=== PATIENT | female | born 1965 | race Caucasian/White ===

== ENCOUNTER 2019-11-30 22:09 | Emergency (ER) | payer OTHER, SELFPAY ==
[2019-11-30 22:10] VITALS: BP 139/74; PULSE 82; RESP 12; TEMP 36.1; O2SAT 100
[2019-11-30] MEDS: LIDO 1%/EPINEPHRINE 1:100,000 20 ML VIAL (22:49)
--- NOTE | 2019-11-30 23:41 | ED.UPPEXIN ---
HPI - Extremity Injury (Upper) General Chief Complaint: Extremity Injury, Upper Stated Complaint: finger lac Time Seen by Provider: 11/30/19 22:21 History of Present Illness HPI narrative: Patient is a 54-year-old female who presents the ER with a laceration to the left thumb. She was cutting watermelon when the knife slipped and struck her hand. No numbness or tingling. No loss range of motion. Tetanus up-to-date. Related Data Home Medications Medication Instructions Recorded Confirmed melatonin 3 mg PO HS PRN 11/30/19 ropinirole mg 11/30/19 Allergies Allergy/AdvReac Type Severity Reaction Status Date / Time sulfamethoxazole AdvReac Unknown Joint Pain Verified 11/30/19 22:26 trimethoprim AdvReac Unknown Joint Pain Verified 11/30/19 22:26 Review of Systems Constitutional: Constitutional: Denies chills and Denies fever(s) Integumentary/Breasts: Skin/Breast: Denies erythema and Denies rash Comments: Laceration Neurologic: Denies focal weakness and Denies numbness PMFSH Past Medical History Medical History (Updated 12/01/19 @ 00:00 by Priscila Guthrie) Restless leg syndrome Surgical History Surgical History (Updated 11/30/19 @ 23:43 by Gabriele Cain MD) History of rectal surgery Anal fistula repair Social History Social History (Updated 11/30/19 @ 23:43 by Gabriele Cain MD) Tobacco type: cigarettes Exam Narrative: Exam Narrative: GENERAL: Well-appearing, well-nourished, and in no acute distress. HEAD: Normocephalic, atraumatic. HEART: Regular rate and rhythm. No murmur heard. Normal peripheral pulses. EXTREMITIES: Normal range of motion. No edema. SKIN: Warm, dry, U-shaped laceration to the thumb that is 2 cm in width and goes deep but does not involve any tendon or bone when viewed in a bloodless field. NEURO: No focal deficits. Alert and oriented x3. PSYCH: Normal mood and affect. Course Course Emergency Course: Wound repaired. Discharge home. Vital Signs Vital signs: Vital Signs Temperature 97 F L 11/30/19 22:10 Pulse Rate 82 11/30/19 22:10 Respiratory Rate 12 11/30/19 22:10 Blood Pressure 139/74 11/30/19 22:10 Pulse Oximetry 100 08/27/20 22:10 Temperature 97.2 F L 11/30/19 23:57 Pulse Rate 80 11/30/19 23:57 Respiratory Rate 19 11/30/19 23:57 Blood Pressure 134/88 11/30/19 23:57 Pulse Oximetry 100 11/30/19 23:57 Procedures Laceration Laceration 1: Date: 11/30/19 Time: 23:30 Site: hand Side (If applicable): left Size (cm): 2 Description: flap Depth: simple, single layer Local Anesthetic: lidocaine 1% and with epi Amount of anesthesia used (mL): 1.5 Pre-repair: wound explored, irrigated and other (Soap and water) ====== Skin Level ====== Skin layer closed with: nylon Size (cm): 4-0 Number of sutures: 4 Technique: simple, interrupted ====== Subcutaneous Layer ====== ====== Muscle Layer ====== ====== Tendon Layer ====== Discharge Plan Discharge Clinical Impression: Laceration of thumb Patient Disposition: Home, Self-Care Condition: Stable Instructions: Care For Your Stitches (ED), Laceration (ED) Additional Instructions: Remove your sutures in 2 weeks. Return the ER if your thumb is red/hot/swollen, there is pus draining from the wound, you have additional concerns. Prescriptions: No Action ropinirole 2 mg tablet RF: 0 melatonin 3 mg Capsule 3 mg PO HS PRN (Reason: Insomnia) RF: 0 Follow-up/Referrals: Harms,Antolin Anaya M.D. [Primary Care Provider] - Discharge Date/Time: 11/30/19 23:58
[2019-11-30 23:57] VITALS: BP 134/88; PULSE 80; RESP 19; TEMP 36.2; O2SAT 100
== END 2019-11-30 23:58 | disposition home or self-care (01) ==
PROVIDERS: Emergency Provider Emergency Medicine; PCP Family Medicine
DX: S61.012A Laceration without foreign body of left thumb without damage to nail, initial encounter (principal); G25.81 Restless legs syndrome; F17.210 Nicotine dependence, cigarettes, uncomplicated; W26.0XXA Contact with knife, initial encounter; Y93.G1 Activity, food preparation and clean up
CPT/HCPCS: 12001; 99282

== ENCOUNTER 2025-02-12 07:49 | Emergency (ER) | payer OTHER, SELFPAY ==
[2025-02-12] VITALS (12 sets, daily range): BP systolic 145–169; BP diastolic 79–106; PULSE 69–82; RESP 16–18; TEMP 36.7; O2SAT 95–99
--- NOTE | ~2025-02-12 | CT_ITS ---
EXAMINATION: CT abdomen pelvis w con DATE: 02/12/2025 08:53 INDICATION: Epigastric pain. Right lower quadrant abdominal pain. TECHNIQUE: Computed tomography (CT) of the abdomen and pelvis was performed with 100 mL Omnipaque-350 intravenous contrast. Automated exposure control and iterative reconstruction technique were employed. The dose-length product was 531.22 mGy-cm. COMPARISON: None FINDINGS: Lung bases are clear. Heart size is normal. No pericardial or pleural effusion. Liver, gallbladder, spleen, pancreas, bilateral adrenal glands and right kidney are normal. 4 mm peripheral low-attenuation cyst at the left kidney. Bowels including appendix are normal. Calcified degenerated uterine fibroid. Bladder and bilateral adnexa are unremarkable. No free intraperitoneal gas or fluid. No pathologically enlarged abdominal or pelvic lymphadenopathy. Severe spondylosis between L4 and the sacralized L5 segment. Mild spondylosis and more cephalad lumbar and lower thoracic spine. IMPRESSION: 1. No acute intra-abdominal/pelvic process. Specifically the gallbladder and appendix are normal. 2. Calcified degenerated uterine fibroid. Reviewed, dictated and finalized at location A. GN AGENT IMPRESSION: 1. No acute intra-abdominal/pelvic process. Specifically the gallbladder and ap pendix are normal. 2. Calcified degenerated uterine fibroid.
--- NOTE | ~2025-02-12 | CT_ITS ---
CT HEAD NON-CONTRAST Clinical History: AMS Comparison: None Technique: Unenhanced axial images skull base to vertex Coronal, sagittal reformats CT images acquired with automatic exposure control for dose reduction DLP: 605 mGy-cm Findings: Residual vascular contrast. Small broad-based extra-axial focus anterior right frontal region with enhancement, most likely meningioma. Axial series 2 image 40 and 41. Sulci, ventricles: Unremarkable. No intracerebral hemorrhage. No evidence acute territorial infarct. No mass effect, midline shift. Bony calvarium intact. Visualized paranasal sinuses: Clear. Mastoid air cells: Fluid right side. IMPRESSION: 1. No acute intracranial findings. Reviewed, dictated and finalized at location R. TY FIRE MARSHAL
--- OUTSIDE RECORDS SUMMARY | 2025-02-12 07:52 | XMS_ITS | Clinical Summary ---
Author Organization [facility] Address [address] [place] [phone] Phone Care Team Providers Care Diesel Engine Inspector Name Role Phone Antolin Davis MD Primary Care Provider [phone] Allergies Active Allergy Reactions Criticality Noted Date Comments Sulfamethoxazole-Tr imethoprim Other (see Comments) 07/30/2019 Pt experienced joint pain on 3 different occasions Medications No known medications Active Problems No known active problems Social History Tobacco Use Types Packs/Day Years Used Date Smoking Tobacco: Never Smokeless Tobacco: Never Comments No Sex and Gender Information Value Date Recorded Sex Assigned at Not on file Legal Sex Female 2:51 PM CDT Gender Identity Not on file Sexual Orientation Not on file Last Filed Vital Signs Vital Sign Reading Time Taken Comments Blood Pressure 102/74 07/30/2019 3:11 PM CDT Pulse 95 07/30/2019 3:11 PM CDT Temperature 37.1 C (98.7 F) 07/30/2019 3:11 PM CDT Respiratory Rate 20 07/30/2019 3:11 PM CDT Oxygen Saturation 98% 07/30/2019 3:11 PM CDT Inhaled Oxygen Concentration - - Weight - - Height - - Body Mass Index - - Plan of Treatment Health Maintenance Due Date Last Done Comments Hepatitis C Virus (HCV) Screening 1966 TdaP Immunization 1966 Hepatitis B Immunization (1 of 3 - 19+ 3-dose series) 1985 Pap Smear 1987 Cervical Cancer Screening (CCS) 1996 HPV/Cotest 1996 Cologuard 2011 Colonoscopy 2011 Colorectal Cancer Screening 2011 Immunochemical Fecal Occult Blood 2011 Pneumococcal Immunization (5 0+ years) (1 of 1 - PCV) 2016 Zoster Immunization (1 of 2) 2016 Influenza Immunization (#1) 2024 SARS-COV-2 Immunization (1 - 2024- season) 2024 Respiratory Syncytial Virus (RSV) Immunization (Adult) (1 - 1-dose 75+ series) 2041 Human Papillomavirus (HPV) Immunization Aged Out No longer eligible b ased on patient's age to complete this topic Meningococcal Immunization (ACWY) Aged Out No longer eligible based on patient's age to complete this topic Rotavirus Immunization Aged Out No lo nger eligible based on patient's age to complete this topic Insurance [facility] Care Teams Diesel Engine Inspector Relationship Specialty Start Date End Date [place]olin [place] [address] PCP - General Internal Medicine 07/30/19
--- OUTSIDE RECORDS SUMMARY | 2025-02-12 07:52 | XMS_ITS | Clinical Summary ---
Author Organization [facility] Address [address] [place] [id number] Care Team Providers Care Development Spec Name Role Phone Unavailable Primary Care Provider Unavailabl e Social History Tobacco Use Types Packs/Day Years Used Date Smoking Tobacco: Never Assessed Comments Unknown Sex and Gender Information Value Date Recorded Sex Assigned at Not on file Legal Sex Female 8:09 PM CDT Gender Identity Not on file Sexual Orientation Not on file Plan of Treatment Health Maintenance Due Date Last Done Comments Cervical Cancer Screening Pa p Smear (Age 30 to 64) Every 3 Years 1966 Colorectal Cancer Screening Colonoscopy (10 Years) 1966 Annual Physical 1969 Hepatitis C 1984 DTaP, Tdap and Td Vaccines ( 1 - Tdap) 1985 Hepatitis B Vaccines (1 of 3 - 19+ 3-dose series) 1985 Cervical Cancer Screening Pa p with HPV Testing (Age 30 to 64) Every 5 Years 1996 Cervical Cancer Screening with HPV 1996 Mammogram Screening 2006 Pneumococcal Vaccine: 50+ Ye ars (1 of 1 - PCV) 2016 Zoster Vaccines (1 of 2) 2016 COVID-19 Vaccine ( - 2024-2 6 season) 2024 Influenza Adult (#1) 2025 Hepatitis A Vaccines Aged Out No long er eligible based on patient's age to complete this topic Meningococcal B Vaccine Aged Out No l onger eligible based on patient's age to complete this topic Meningococcal Vaccine Aged Out No brenda rocio eligible based on patient's age to complete this topic RSV Immunizations Under 20 Months Aged Out No longer eligible based on patient's age to complete this topic
--- OUTSIDE RECORDS SUMMARY | 2025-02-12 07:52 | XMS_ITS | Clinical Summary ---
Author Organization [facility] Address [address] [place] [address] Care Team Providers Care Fruit And Vegetable Parer Name Role Phone Antolin Davis MD Primary Care Provider [phone] Allergies Active Allergy Reactions Criticality Noted Date Comments Baclofen Unknown 03/11/2023 Sulfamethoxazole-Tri methoprim Joint pain,Other (See comments) Low 11/10/2017 Pt experienced joint pain on 3 different occasions Medications esomeprazole DR (NexIUM) 40 mg capsuleIndicati ons:Gastroesoph ageal reflux disease without esophagitis Take 1 capsule (40 mg total) by mouth daily before breakfast 90 capsule 1 06/11/19 22 Active albuterol HFA (PROVENTIL HFA,VENTOLIN HFA,PROAIR HFA) 90 mcg/actuation inhalerIndicati ons:Lower respiratory infection (e.g., bronchitis, pneumonia, pneumonitis, pulmonitis) Inhale 2 puffs every 6 (six) hours as needed for wheezing or shortness of breath 1 each 05/27/19 24 Active rOPINIRole (REQUIP) 2 mg tabletIndicatio ns:Restless leg syndrome TAKE 1 TABLET BY MOUTH EVERY NIGHT 90 tablet 3 05/11/19 25 Active busPIRone (BUSPAR) 15 mg tabletIndicatio ns:Generalized Anxiety Disorder Take 1 tablet (15 mg total) by mouth 2 (two) times a day 180 tablet 3 06/28/19 25 Active buPROPion XL (WELLBUTRIN XL) 150 mg 24 hr tabletIndicatio ns:Adjustment reaction with anxiety and depression TAKE 1 TABLET BY MOUTH EVERY MORNING WITH 300MG FOR A TOTAL 450 MG DAILY 90 tablet 1 08/22/19 25 Active buPROPion XL (WELLBUTRIN XL) 300 mg 24 hr tabletIndicatio ns:Adjustment disorder with depressed mood TAKE 1 TABLET(300 MG) BY MOUTH EVERY MORNING 90 tablet 01/18/20 25 Active buPROPion XL (WELLBUTRIN XL) 300 mg 24 hr tabletIndicatio ns:Adjustment disorder with depressed mood TAKE 1 TABLET(300 MG) BY MOUTH EVERY MORNING 100 tablet 01/12/20 25 025 Discontinued Active Problems Problem Noted Date Diagnosed Date Decreased GFR 09/10/2023 Assessment & Plan (09/10/2023 2:33 PM CDT): Reviewed labs with patient. Mildly elevated creatinine. Discussed continue tight control of blood pressure, blood sugars have been well controlled. Patient does not routinely use NSAIDs. Recommended drinking plenty of water and following a lower sodium diet. Will continue to monitor labs. Lumbago 03/11/2023 Viral URI with cough 03/11/2023 Assessment & Plan (03/11/2023 1:27 PM EQUIPMENT MECHANIC SPECIALIST): Symptoms sinus congestion, sinus pressure and cough present x 10 day and improving. Denies any fever or sob. No GI symptoms. Recommend continued bzni-yat-fvmgehm symptomatic treatment, can try Sudafed as well. Push fluids and get plenty of rest. Follow-up if experiencing any new or worsening symptoms and can discuss antibiotic if appropriate at that time. Adjustment reaction with anxiety and depression 09/08/2022 Assessment & Plan (06/27/2024 11:32 AM CDT): Feels that moods fluctuate, does think that increasing buspirone would be beneficial. Will increase buspirone to 15 mg b.i.d.. Continue bupropion 450 mg daily. Encouraged healthy diet, regular exercise. May benefit from counseling services. Will plan to follow-up in 3-6 months, aware to follow-up sooner with any changes in mood. Assessment & Plan (09/10/2023 2:32 PM CDT): Moods are stable, doing well with bupropion and buspirone. Will continue to monitor. Assessment & Plan (03/11/2023 1:25 PM EQUIPMENT MECHANIC SPECIALIST): Doing well with bupropion and buspirone. No change in current meds and will continue to monitor Assessment & Plan (09/08/2022 12:24 PM CDT): Increased anxiety for the past several weeks. Will continue bupropion and add buspirone 5 mg TID. Reviewed medication side effects and scheduling. Recommended follow up in office in 3-4 months. Physical exam, annual 09/08/2022 Assessment & Plan (06/27/2024 11:33 AM CDT): Preventative exam; reviewed screenings and vaccinations. Current on colonoscopy. Mammogram ordered. Encouraged patient to schedule appointment with crop roller for cervical cancer screening/well-woman exam. Assessment & Plan (09/08/2022 12:23 PM CDT): Preventive exam; reviewed recommended preventive screenings and vaccinations. Encourage annual flu vaccine. Wear sunscreen/protective clothing when outdoors. -current on screening mammogram -current on colorectal cancer screening Vascular disorder of extremity 09/08/2022 Assessment & Plan (09/08/2022 12:31 PM CDT): Discussed exaggerated vascular response of extremities to temperature changes, caffeine consumption and stress. Patient to avoid extremes and reviewed need for continued monitoring. Will follow up if she experiences any increase in frequency or symptoms associated with pain, swelling or weakness. Personal history of colonic polyps 12/15/2021 Overview (12/15/2021): Added automatically from request for surgery [id number] Encounter for colorectal cancer screening 2021 Hyperlipidemia 11/20/2021 Assessment & Plan (06/27/2024 11:33 AM CDT): Improving; reviewed labs with him today. The 10-year ASCVD risk score (Yessica DK, et al., 2019) is: 2.5% Values used to calculate the score: Age: 59 years Sex: Female Is Non- : No Diabetic: No Tobacco smoker: No Systolic Blood Pressure: 126 mmHg Is BP treated: No HDL Cholesterol: 71 mg/dL Total Cholesterol: 237 mg/dL Assessment & Plan (09/10/2023 2:31 PM CDT): Reviewed diet, encouraged to limit red meat intake. Has been consuming a lot more red meat than normal for her. Will repeat in 6 months, discussed starting cholesterol lowing medication if continued to be elevated. The 10-year ASCVD risk score (Yessica RAHMAN, et al., 2019) is: 2.6% Values used to calculate the score: Age: 58 years Sex: Female Is Non- : No Diabetic: No Tobacco smoker: No Systolic Blood Pressure: 126 mmHg Is BP treated: No HDL Cholesterol: 62 mg/dL Total Cholesterol: 248 mg/dL Assessment & Plan (09/08/2022 12:25 PM CDT): Reviewed previous lipid panel and ascvd risk with patient. Fasting labs ordered today. Assessment & Plan (11/21/2021 7:46 AM CDT): Patient to complete labs. Chronic right-sided low back pain without sciati ca 11/20/2021 Assessment & Plan (09/08/2022 12:27 PM CDT): Referral to spinal surgery denied until re-evaluation with pain management and PT. Patient reports some improvement in back pain with recent weight loss, congratulated on weight loss efforts. Patient will reach out to the office if she decides to pursue PT/Pain management referral. Continue meloxicam 15 mg daily. Assessment & Plan (11/21/2021 7:46 AM CDT): Recommended evaluation and treatment with physical therapy for chronic back pain, however patient is not interested in pursuing physical therapy at this time. We discussed the importance of home exercise program and weight loss. Imaging ordered today. Briefly discussed pain management referral if needed in the future- patient is not interested in pain management evaluation. Is agreeable to start meloxicam once daily, reviewed medication side effects and scheduling. Will monitor response and follow up pending x-rays. Reviewed red flags warranting immediate evaluation. Restless leg syndrome 08/08/2019 Assessment & Plan (09/10/2023 2:30 PM CDT): Continue ropinirole 2 mg tablets Assessment & Plan (09/08/2022 12:25 PM CDT): Continue ropinirole with good response. Assessment & Plan (08/08/2019 9:24 AM CDT): Controlled with ropinirole Gastroesophageal reflux disease without esophagi tis 08/08/2019 Assessment & Plan (08/08/2019 9:24 AM CDT): Controlled with diet Screening for malignant neoplasm of breast 08/07 Assessment & Plan (06/27/2024 11:32 AM CDT): Mammogram ordered today. Assessment & Plan (03/11/2023 1:25 PM EQUIPMENT MECHANIC SPECIALIST): Mammogram ordered today. Assessment & Plan (11/21/2021 7:46 AM CDT): Aware to call and schedule mammogram. BMI 29.0-29.9,adult 08/08/2019 Assessment & Plan (03/11/2023 1:27 PM EQUIPMENT MECHANIC SPECIALIST): Stable Assessment & Plan (09/08/2022 12:25 PM CDT): Discussed healthy diet and importance of regular physical activity. Assessment & Plan (11/21/2021 7:40 AM CDT): Discussed healthy diet and importance of regular physical activity. Assessment & Plan (08/08/2019 9:24 AM CDT): Will await pending labs. 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 Immunizations Immunization Administration Dates Next Due Influenza, Unspecified 06/27/2024(Deferr ed: Patient Refused),01/04/2024(Deferred: Patient Refused),09/10/2023(Deferred: Patient Refused),03/11/2023(Deferred: Patient Refused),01/03/2023(Deferred: Patient Refused),01/03/2023(Deferred: Patient Refused),01/03/2022(Deferred: Patient Refused),01/03/2022(Deferred: Patient Refused),01/03/2022(Deferred: Patient Refused),01/03/2022(Deferred: Patient Refused),11/20/2021(Deferred: Patient Refused),01/03/2021(Deferred: Patient Refused),12/04/2020(Deferred: Patient Refused),05/10/2020(Deferred: Patient Refused),2020(Deferred: Patient Refused),08/08/2019(Deferred: Patient Refused),2019(Deferred: Patient Refused),2019(Deferred: Patient Refused),2019(Deferred: Patient Refused),2018(Deferred: Patient Refused) Tdap 08/08/2019 Surgical History Surgery Date Site/Laterality Comments COLONOSCOPY 04/19/2016 COLONOSCOPY 11/10/2017 Medical History Medical History Date Comments GERD (gastroesophageal reflux disease) Degenerative joint disease of low back Solis's palsy RLS (restless legs syndrome) DDD (degenerative disc disease), cervical Smoking Family History Medical History Relation Name Comments Diabetes Father Hypertension Father Stroke Father Diabetes Mother Hypertension Mother Thyroid disease Mother Breast cancer Mother's Sister Breast cancer Sister Hodgkin's lymphoma Sister Relation Name Status Comments Father Mother Alive Mother's Sister Sister Social History Tobacco Use Types Packs/Day Years Used Date Smoking Tobacco: Former Cigarettes 0.3 7 2 012 - 2019 Smokeless Tobacco: Never Tobacco Cessation:Counseling Given: Not Answered Comments:PT VAPES Alcohol Use Standard Drinks/Week Comments Yes 0 (1 standard drink = 0.6 oz pur e alcohol) Very seldom AUDIT-C Answer Date Recorded Q1: How often do you have a drink containing alc ohol? Monthly or less 02/25/2022 Average Number of Drinks Not on file 022 Q3: How often do you have si x or more drinks on one occasion? Less than monthly 02/25/2022 PHQ-2 Answer Date Recorded PHQ-2 Total Score (If total score is 3 or more points, staff should administer the PHQ-9) 0 06/27/2024 Comments No Sex and Gender Information Value Date Recorded Sex Assigned at Not on file Legal Sex Female 9:31 AM CDT Gender Identity Female 10/31/2019 8:37 AM CDT Sexual Orientation Straight 10/31/2019 8: 37 AM CDT Obstetrics History Para Term AB IAB SAB Ectopic Multiple Livin g Live Births 4 2 2 Date Outcome GA Total Labor Labor//3rd Weight Sex Type Anes PTL Bárbara A1 A5 Name Clin Term Term Last Filed Vital Signs Vital Sign Reading Time Taken Comments Blood Pressure 126/82 07/18/2024 10:54 AM CDT Pulse 76 07/18/2024 10:54 AM CDT Temperature 37.1 C (98.8 F) 07/18/2024 10:54 AM CDT Respiratory Rate 20 07/18/2024 10:54 AM CDT Oxygen Saturation 98% 07/18/2024 10:54 AM CDT Inhaled Oxygen Concentration - - Weight 87.5 kg (193 lb) 07/18/2024 10:54 AM CDT Height 160 cm (5' 3) 07/18/2024 10:54 AM CDT Body Mass Index 34.19 07/18/2024 10:54 AM CDT Plan of Treatment Health Maintenance Due Date Last Done Comments Hepatitis C Screening 1965 Hepatitis B Screening 1984 Zoster Vaccine (1 of 2) 2016 Cervical Cancer Screening 08/28/2020 08/29/2019 Breast Cancer Screening-Mammogram 06/23/2024 06/24/2023, 01/09/2022, 10/29/2020, Additional history exists Influenza Vaccine (#1) 2024 Depression Screening 06/27/2025 06/27/2024, 09/10/2023, 03/11/2023, Additional history exists Regular Well Visit/Exam 18-64 06/27/2025 06/27/2024, 09/08/2022 Colon Cancer Screening-Colonoscopy 02/25/2027 02/25/2022, 11/10/2017 DTaP/Tdap/Td Vaccine (2 - Td or Tdap) 08/07/2029 08/08/2019 Colon Cancer Screening-CT Colonography Discontinued 02/25/2022, 11/10/2017 Colon Cancer Screening-DNA Stool Discontinued 02/25/2022, 11/10/2017 Colon Cancer Screening-FIT Discontinued 02/25/2022, Colon Cancer Screening-Sigmoidoscopy Discontinued 02/25/2022, 11/10/2017 Pneumococcal vaccine <65 Aged Out No longer eligible based on patient's age to complete this topic Procedures Procedure Name Priority Date/Time Associated Diagnosis Comments SCREENING MAMMOGRAM BILATERAL W ALLEN Schedule Routine, Read Routine (OP Routine) 06/24/2023 4:32 PM CDT Screening mammogram, encounter for COLONOSCOPY 02/25/2022 11:42 AM EQUIPMENT MECHANIC SPECIALIST HM PAP SMEAR WITH HPV Routine 08/29/2019 from Last 3 Months or Most Recently Relevant to Health Maintenance Results * Screening Mammogram Bilateral W Allen (06/24/2023 4:32 PM CDT) Anatomical Region Laterality Modality Breast Bilateral Mammography 06/24/2023 4:40 PM CDT Impressions 06/24/2023 4:40 PM CDT There is no mammographic evidence of malignancy. A 1 year screening mammogram is recommended. BI-RADS: 1 - Negative. The patient has been or will be contacted. The patient will be entered into a reminder system with a target due date of 1 year for her next mammogram. Electronically signed by: Elliot Louise M.D. Narrative 06/24/2023 4:40 PM CDT EXAMINATION: SCREENING MAMMOGRAM BILATERAL W ALLEN ORDERING HEALTHCARE PROVIDER: SELF SCREENING MAMMOGRAM HISTORY: Routine screening mammography. COMPARISON: 01/09/2022, 10/29/2020, 10/30/2019, 10/13/2017 TECHNIQUE: CC and MLO views of the bilateral breasts were obtained with digital technique using breast tomosynthesis with C view. Computer aided detection was utilized. FINDINGS: DENSITY: There are scattered fibroglandular elements in the bilateral breasts. BREASTS: There are no suspicious masses, suspicious calcifications, or other suspicious findings in either breast. There has been no suspicious interval change. us Self Screening Mammogram IMG MAMMO PROCEDURES Fi nal Result * COLONOSCOPY (02/25/2022 11:42 AM EQUIPMENT MECHANIC SPECIALIST) Anatomical Region Laterality Modality Other Narrative Procedure Note Brandee Fink MD - 02/25/2022 11:42 AM CST [facility] Patient Name: Yesi Luciano Procedure Date: 02/25/2022 11:42AM Date of : 1965 Admit Type: Outpatient Age: 56 Gender: Female Attending MD: Brandee Fink M.D. Room: [facility] ENDOSCOPY ROOM 1 Note Status: Finalized Patient Profile: This is a 56 year old female. h/o polyps. no family h/o colon cancer. Procedure: Colonoscopy Indications: High risk colon cancer surveillance: Personalhistory of colonic polyps, Last colonoscopy: May2017 Referring MD: Antolin Davis M.D. Providers: Brandee Fink M.D. Impression: - The entire examined colon is normal. - Internal hemorrhoids. - No specimens collected. Recommendation: - Repeat colonoscopy in 5 years for screeningpurposes. - Continue present medications. Medicines: Monitored Anesthesia Care Complications: No immediate complications. Estimated Blood Loss: Estimated blood loss: none. Procedure: Pre-Anesthesia Assessment: - Prior to the procedure, a History and Physicalwas performed, and patient medications and allergieswere reviewed. The patient's tolerance of previous anesthesia was also reviewed. The risks andbenefits of the procedure and the sedation options and risks were discussed with the patient. All questions were answered, and informed consent was obtained. Prior Anticoagulants: The patient has taken noanticoagulant or antiplatelet agents. ASA Grade Assessment: II -A patient with mild systemic disease. After reviewing the risks and benefits, the patient was deemed in satisfactory condition to undergo the procedure. The benefits, risks and alternatives of theprocedure and sedation were discussed and informed consentwas obtained. All questions were answered. Please referto the signed informed consent document in the medical record. The bowel preparation used was Miralax via split dose instruction. The bowel preparation usedwas bisacodyl tablets via split dose instruction. The scope was passed under direct vision. The Pediatric Colonoscope PCF-H190L [id number] was introducedthrough the anus and advanced to the the cecum, identifiedby appendiceal orifice and ileocecal valve. Thequality of the bowel preparation was excellent. Bowel prepwas administered using a split dose. Findings: The perianal and digital rectal examinations were normal. The cecum appeared normal. The colon (entire examined portion) appeared normal. No polyps and no mass lesions noted. Internal hemorrhoids were found during retroflexion. The hemorrhoids were small. Electronically signed by Brandee Fink M.D. Brandee Fink M.D. 02/25/2022 1:32:42 PM Number of Addenda: 0 Note Initiated On: 02/25/2022 11:42 AM Procedure Code(s): --- Professional --- 02708, Colonoscopy, flexible; diagnostic, including collection of specimen(s) by brushing or washing, when performed (separateprocedure) Diagnosis Code(s): --- Professional --- Z86.010, Personal history of colonic polyps K64.8, Other hemorrhoids CPT copyright 2020 [employer]. All rights reserved. The codes documented in this report are preliminary and upon nurse infection control reviewmay be revised to meet current compliance requirements. Recognized by the [place] [employer] for promoting quality in endoscopy Brandee Fink MD ENDOSCOPY PROCEDURES Final Result * HM PAP SMEAR WITH HPV (08/29/2019) Historical Provider HEALTH MAINTENANCE Final Result from Last 3 Months or Most Recently Relevant to Health Maintenance Insurance [employer] Advance Directives For more information, please contact: [phone] * Full Code (Latest Code Status on File) Date Activated Date Inactivated Comments 02/25/2022 11:44 AM 02/25/2022 5:58 PM * Full Code Date Activated Date Inactivated Comments 02/25/2022 11:44 AM 02/25/2022 11:44 AM Care Teams Fruit And Vegetable Parer Relationship Specialty Start Date End Date Antolin Davis MD [address] [place] [address] PCP - General Family Medicine 08/08/19
[2025-02-12 08:09] LABS: Hematocrit 48.0 % (37.0-47.0); Hemoglobin 15.8 g/dL (12.0-15.0); Immature Granulocyte Percent A 0.2 % (0-0.5); Lymphocytes Absolute Auto 1.09 K/mm3 (0.9-3.2); Mean Corpuscular HGB Conc 32.9 g/dl (32-36); Mean Corpuscular Hemoglobin 30.2 pg (26-34); Mean Corpuscular Volume 91.6 fl (80-100); Nucleated Red Blood Cells Absolute Auto 0.000 K/mm3 (0.0-0.012); Nucleated Red Blood Cells Perc 0.0 % (0.0-0.2); Platelet Count Result 323 k/mm3 (150-375); Red Blood Count 5.24 M/mm3 (4.2-5.4); White Blood Count 5.0 K/mm3 (4.5-10.0)
[2025-02-12 08:29] LABS: Alanine Aminotransferase 21 U/L (6-35); Albumin Level 4.6 g/dL (3.5-5.1); Alkaline Phosphatase 59 U/L (38-126); Anion Gap 11 mmol/L (4-12); Aspartate Amino Transferase 33 U/L (14-36); Bilirubin,Total 0.5 mg/dL (0.2-1.3); Blood Urea Nitrogen 9 mg/dL (7-17); Calcium 9.3 mg/dL (8.4-10.2); Carbon Dioxide 24 mmol/L (22-30); Chloride 103 mmol/L (98-107); Estimated CRCL calculation 56 ml/min; Estimated Glomerular Filt Rate 54; Glucose 114 mg/dL (65-110); Lipase 51 U/L (23-300); Potassium 3.9 mmol/L (3.4-5.0); Sodium 138 mmol/L (137-145); Total Protein 7.7 g/dL (6.3-8.2)
[2025-02-12 08:34] LABS: Add Urine Microscopic? YES; Appearance Urine Clear (Clear); Glucose Urine UA Negative (Negative); Leukocyte Esterase Ur 1+ LEU/UL (Negative); Need Manual Microscopic Reviewed; Nitrate Urine Negative (Negative); Non Pathogenic Casts 0-2; Specific Grav Ur 1.009 (1.001-1.035)
--- NOTE | 2025-02-12 08:39 | ED_ITS ---
HPI - General Adult General Chief complaint: Abdominal Pain Stated complaint: I'm def sure I have gallbladder disease Time Seen by Provider: 02/12/25 08:04 History of Present Illness HPI narrative: 59-year-old female presented to the emergency department for evaluation for right lower quadrant pain and epigastric pain. Patient states that she has had the right lower quadrant pain for the last few weeks and began having epigastric pain a few days ago with associated nausea vomiting. Patient reports she has not had a bowel movement in the last few days. Patient does have a prior surgical history of ectopic and did have surgery. Time of evaluation patient did report complaint nausea this morning but patient declined any medications for pain control. Related Data Home Medications ?Medication ?Instructions ?Recorded ?Confirmed ?Last Taken ?Type melatonin 3 mg capsule 3 mg PO HS PRN Insomnia 11/04 10/22 Unknown History ropinirole 2 mg tablet mg 11/30/19 Unknown History Allergies Allergy/AdvReac Type Severity Reaction Status Date / Time sulfamethoxazole AdvReac Unknown Joint Pain Verified 02/12/25 07:57 trimethoprim AdvReac Unknown Joint Pain Verified 02/12/25 07:57 Review of Systems 2 Review of Systems: All systems reviewed & are unremarkable except as noted in HPI and below PMFSH Past Medical History Medical History (Updated 02/12/25 @ 11:45 by Harmeet Chavez MD) Restless leg syndrome Surgical History Surgical History (Updated 11/30/19 @ 23:43 by Gabriele Cain MD) History of rectal surgery Anal fistula repair Social History Social History (Updated 11/30/19 @ 23:43 by Gabriele Cain MD) Tobacco type: cigarettes Exam 2 Narrative: APPEARANCE: Uncomfortable appearing HEAD: normocephalic, atraumatic. EYES: PERRLA/EOMI, conjunctivae clear. NOSE: Normal no drainage EARS:TMS clear with good light reflex. THROAT: Pharynx clear, no exudate. NECK: Supple. No adenopathy, no masses. RESPIRATORY: Airway patent, respirations nonlabored. Clear to auscultation bilaterally, no rales, rhonchi, wheezing. CARDIOVASCULAR: Regular rate and rhythm without murmurs rubs or gallops. ABDOMINAL: epigastric pain without significant reproducible tenderness to palpation of epigastrium or right lower quadrant MUSCULOSKELETAL: Moves all extremities. Strength/ROM intact, No edema, No calf tenderness. NEURO: Alert. Cranial nerves II through XII intact. Good gait. Good coordination SKIN: Warm, dry. Normal Color Course Vital Signs Vital signs: Vital Signs Temperature 98.1 F 02/12/25 07:53 Pulse Rate 82 02/12/25 07:53 Respiratory Rate 16 02/12/25 07:53 Blood Pressure 169/99 H 02/12/25 07:53 Pulse Oximetry 97 02/12/25 07:53 Oxygen Delivery Room Air 02/12/25 07:53 Temperature 98.0 F 02/12/25 11:54 Pulse Rate 73 02/12/25 11:54 Respiratory Rate 16 02/12/25 11:54 Blood Pressure 145/89 H 02/12/25 11:54 Pulse Oximetry 99 02/12/25 11:54 Oxygen Delivery Room Air 02/12/25 07:53 Medical Decision Making MDM Narrative Medical decision making narrative: 59-year-old female presented emergency department for evaluation for right-sided abdominal pain. Patient had no right upper quadrant tenderness to palpation. Patient is afebrile with no leukocytosis and a stable hemoglobin 15.8. Patient had no significant abnormalities on her CMP was normal T bili AST ALT alk-phos and lipase. UA was negative for infection. Patient's head CT was negative. Head CT was ordered calves the patient's family states the patient seemed to be mildly confused. He had stated that she had laughed excessively hard at a joke that was not that funny. Patient does use medical marijuana. Patient is alert and orientated at time of evaluation. CT scan showed no acute intra-abdominal pathology. Low concern for acute cholecystitis. At time of re-evaluation patient does feel improved denies any abdominal pain. Differential Diagnosis Differential Diagnosis: Colitis, diverticulitis, cholecystitis,, subdural hematoma, subarachnoid hemorrhage, Vital Signs Vital Signs: Vital Signs Temperature 98.1 F 02/12/25 07:53 Pulse Rate 82 02/12/25 07:53 Respiratory Rate 16 02/12/25 07:53 Blood Pressure 169/99 H 02/12/25 07:53 Pulse Oximetry 97 02/12/25 07:53 Oxygen Delivery Room Air 02/12/25 07:53 Temperature 98.0 F 02/12/25 11:54 Pulse Rate 73 02/12/25 11:54 Respiratory Rate 16 02/12/25 11:54 Blood Pressure 145/89 H 02/12/25 11:54 Pulse Oximetry 99 02/12/25 11:54 Oxygen Delivery Room Air 02/12/25 07:53 Lab Data Lab results reviewed: Yes I reviewed the patient's lab results. 02/12/25 08:00 02/12/25 08:00 Labs: Lab Results 02/12/25 02/12/25 02/12/25 Range/Units 08:00 08:10 08:44 WBC 5.0 (4.5-10.0) K/mm3 RBC 5.24 (4.2-5.4) M/mm3 Hgb 15.8 H (12.0-15.0) g/dL Hct 48.0 H (37.0-47.0) % MCV 91.6 (80-100) fl MCH 30.2 (26-34) pg MCHC 32.9 (32-36) g/dl RDW 12.8 (11.5-14.5) % Plt Count 323 (150-375) k/mm3 MPV 9.9 (7.4-10.4) fl Immature Gran % (Auto) 0.2 (0-0.5) % Neut % (Auto) 68.1 (45.5-73.1) % Lymph % (Auto) 21.7 (18.3-44.2) % [place] % (Auto) 7.2 (2.6-8.5) % Eos % (Auto) 2.4 (0-4.4) % Baso % (Auto) 0.4 (0.2-1.2) % Lymph # (Auto) 1.09 (0.9-3.2) K/mm3 [place] # (Auto) 0.4 (0.1-0.6) K/mm3 Eos # (Auto) 0.1 (0-0.3) K/mm3 Baso # (Auto) 0.0 (0.0-0.1) K/mm3 Abs Immat Gran (auto) 0.01 (0.00-0.031) K/mm3 Absolute Neuts (auto) 3.4 (1.3-6.7) K/mm3 Absolute Nucleated RBC 0.000 (0.0-0.012) K/mm3 Nucleated RBC % 0.0 (0.0-0.2) % Sodium 138 (137-145) mmol/L Potassium 3.9 (3.4-5.0) mmol/L Chloride 103 (98-107) mmol/L Carbon Dioxide 24 (22-30) mmol/L Anion Gap 11 (4-12) mmol/L BUN 9 (7-17) mg/dL Creatinine 1.04 H (0.7-1.0) mg/dL Estim Creat Clear Calc 56 ml/min Estimated GFR 54 L (59 - ) Glucose 114 H (65-110) mg/dL Calcium 9.3 (8.4-10.2) mg/dL Total Bilirubin 0.5 (0.2-1.3) mg/dL AST 33 (14-36) U/L ALT 21 (6-35) U/L Alkaline Phosphatase 59 (38-126) U/L Total Protein 7.7 (6.3-8.2) g/dL Albumin 4.6 (3.5-5.1) g/dL Lipase 51 (23-300) U/L Urine Color Yellow (Yellow) Urine Appearance Clear (Clear) Urine pH 6.5 (5.0-9.0) Ur Specific [place] 1.009 (1.001-1.035) Urine Protein Negative (Negative) mg/dL Urine Glucose (UA) Negative (Negative) mg/dL Urine Ketones Negative (Negative) mg/dL Ur Blood (Man) Negative (Negative) Urine Nitrate Negative (Negative) Urine Bilirubin Negative (Negative) Urine Urobilinogen 0.2 (<2.0) mg/dL Add Ur Microanalysis Reviewed Leukocyte Esterase Rfl 1+ H (Negative) VAIBHAV/UL Urine RBC 3-5 H (0-2) /hpf Urine WBC 0-5 (0-3) /hpf Ur Squamous Epith Cells Occasional (Few) /hpf Urine Bacteria None seen /hpf Urine Casts 0-2 POC Urine HCG, Qual Negative (Negative) Imaging Data Radiologist's impression: Impressions Abdomen/Pelvis CT 02/12/25 08:55 IMPRESSION: 1. No acute intra-abdominal/pelvic process. Specifically the gallbladder and appendix are normal. 2. Calcified degenerated uterine fibroid. Head CT 02/12/25 11:33 IMPRESSION: 1. No acute intracranial findings. Discharge Plan Discharge Clinical Impression: Abdominal pain, AMS (altered mental status) Patient Disposition: Home Condition: Stable Instructions: Antibiotic Form, Abdominal Pain (ED) Additional Instructions: Have close follow-up with your primary care physician for additional outpatient gallbladder testing including a HIDA scan. If you have any worsening symptoms then please call or return to the emergency department. Patient Language: Japanese Prescriptions: No Action ropinirole 2 mg tablet melatonin 3 mg Capsule 3 mg PO HS PRN (Reason: Insomnia) Follow-up/Referrals: Susan,Antolin Anaya M.D. [Primary Care Provider]
[2025-02-12 08:46] LABS: BEDSIDEPREGUCG Negative (Negative)
[2025-02-12] MEDS: ONDANSETRON INJ 4 MG/2 ML VIAL IV PUSH (08:57)
--- OUTSIDE RECORDS SUMMARY | 2025-02-12 08:58 | XMS_ITS | Data Portability ---
Author Organization [facility] Address [address] [place] [address] Assessment Encounter Date Assessment Date Assessment LastModified by Organization Details LastModified Time 08/29/2019 08/29/2019 Annual gynecological exam performed. Patient will come back in a year unless there are new symptoms. [email or web address] Not available 08/29/2019 11:07:05 Plan of Treatment Reminders Order Date Submit Date Provider Last Modified By Organization Details Last Modified Time Details Appointments None record ed. Lab None record ed. Referral None record ed. Procedures None record ed. Surgeries None record ed. Imaging None record ed. Medication Orders None record ed. Patient TargetsNo targets recorded. Patient InstructionsNo instructions recorded. Reason for Referral None Reported. Results Created Date Observation Date Name Description Value Unit Range Abnormal Flag Note LastModifiedBy Organization Detail LastModifiedTime 08/29/19 20 08/30/2019 pap, LB Pap test thin prep Negati ve for Intrae pithel ial Lesion or Malign angela normal ACCES ESTEFANI #: [id number] Sourc e: Cervi vanessa/E ndoce rvica l LMP: 04/05 Date Taken : 08/28 Speci men Type: ThinP rep Vial Date Repor bryan: 2019 Clini vanessa Data: Cytot ech: Amie gonzalez, CT( CP) Connor Flanagan M.D. elect contreras moncada winter d 2019 at 2:25 PM Speci men Adequ acy: Satis facto ry for evalu ation Endoc ervic al/tr ansfo rmati on zone compo nent prese nt Gener al Categ oriza tion: NEGAT LORI FOR INTRA EPITH ELIAL LESIO N OR ANGELIQUE LEI Inter preta tion/ Resul t: React lori cellu shantal black es This speci men has been génesis zed by the ThinP rep Imagi ng Syste m, an inter activ e compu ter syste m which hero ts the lab in the screlauryn bergmang of ThinP rep Pap Test slide sJennifer Mckoyo imagi ng, the slide was revie wed by a Cytot echno logis t and/o r Patho logis t. D N A A S S A Y S R E P O R T TEST NAME RESUL TS ----- ---- ----- -- HPV High Risk Amena morales (TMA) ThinP rep Vial The human papil lomav irus (HPV) High Risk Amena morales is an FDA-a pprov ed in-vi tro ampli fied nucle ic acid test for the quali tativ e detec tion of E6/E7 viral mRNA. Resul ts alie d be corre lated with patie nt prese ntati on, histo ry, cervi vanessa cytol ogy and other clini vanessa and labor atory findi ngs. See https ://Zuvvu/s ites/ defau lt/fi les/2 018-0 3/AW- 19238 _002_ 01.pd f for yane morales. Test perfo rmed by [facility] d/b/a [facility], [address] , [place] [address] , Reyna Lim ra, DO, Labor atory [facility]. HPV High Risk *HPV NOT DETEC BRYAN (TYPE S 16, 18, 31, 33, 35, 39, 45, 51, 52, 56, 58, 59, 66, 68) *HPV: The human papil lomav irus (HPV) High Risk Amena morales is an FDA-a pprov ed in-vi tro ampli fied nucle ic acid test for the quali tativ e detec tion of E6/E7 viral mRNA. Resul ts shoul d be corre lated with patie nt prese ntati on, histo ry, cervi vanessa cytol ogy and other clini vanessa and labor atory findi ngs. See https ://ww wHordspot. [employer]/s ites/ lucina lt/fi les/2 018-0 3/AW- 36177 _002_ 01.pd f for yane eisenberg wayner steve andrew. Test perfo rmed by [facility] [employer], d/b/a [facility], [address], [place] [address] , Reyna Lim ra, DO, [facility] atory Dire tor. End of Repor t Techn ical servi ophelia provi ded by [facility], d/b/a [facility], [address] [place] [address] Armando Daniels MD, [facility]. Case revie wed and diagn osis rende red at [facility], d/b/a [facility], [address] [place] [address] Armando Daniels MD, [facility]. CONFI DENTI AL Not Available [facility] ([facility]) [address] [place] [address] Dr Ortiz, [place], [address], 08/30/2019 15:35:45 08/29/19 20 08/30/2019 HPV DNA, high- risk HPV high risk NOT DETECT ED normal Not Available [facility] ([facility]) [address] [place] [address] Dr Ortiz, [place], [address], 08/30/2019 15:35:45 Result Notes None recorded. Procedures Surgical History Date Name Laterality Status Provider Name and Address Organization Details Recorded Time exploration procedure completed [facility] 08/29/2019 11:06:23 fistulectomy of bone completed [facility] 08/29/2019 11:06:38 Imaging Results None recorded. Procedure Notes None recorded. Medical Equipment None Reported. Allergies Allergen ID Allergen Name Allergen Category Reaction Reaction Severity Criticality Documentation Date Start Date Code Code System Note Provider Name and Address Organization Details Recorded Time 710 baclofen medicatio n Not available Not available Not available 08/29/2019 1292 RxNorm Lisa Crum [facility] 0 11:01:46 Medications Name Sig Start Date Stop Date Status Note LastModified by Organization Details LastModified Time cyclobenzaprine 10 mg tablet 08/28 completed Not Available Not Available Not Available hydrocodone 10 mg-acetaminophen 325 mg tablet 08/28 completed Not Available Not Available Not Available ropinirole 2 mg tablet 08/28 completed Not Available Not Available Not Available nitrofurantoin monohydrate/macr ocrystals 100 mg capsule 08/28 completed Not Available Not Available Not Available ropinirole active Not Available Not Av ailable Not Available Vitals Date Recorded Body height Body mass index (BMI) Body weight Systolic And Diastolic Provider Name and Address Organization Details Last Updated DateTime 08/29/2019 1981.2 cm 0.2 kg/m2 95789.29 g 139/87 mm[Hg] Lisa Crum [facility] 08/29/2019 11:11:26 Social History None recorded. Functional Status None recorded. Mental Status None recorded. Family History Relationship Description Onset Age of this Age Resolved Age Notes LastModified by Organization Details LastModified Time Mother Anemia [email or web address] Not available 11:03:25 Mother Heart disease [email or web address] Not available 2019 11:04:33 Mother Diabetes mellitus [email or web address] Not available 2019 11:04:59 Mother Hypertensive disorder [email or web address] Not available 2019 11:05:42 Sister Carcinoma in situ of breast [email or web address] Not available 2019 11:03:45 Sister Disorder of thyroid gland [email or web address] Not available 2019 11:05:54 Maternal Aunt Carcinoma in situ of breast [email or web address] Not available 2019 11:03:45 Maternal Aunt Heart disease [email or web address] Not available 2019 11:04:33 Maternal Aunt Diabetes mellitus [email or web address] Not available 2019 11:04:59 Maternal Aunt Hypertensive disorder [email or web address] Not available 2019 11:05:42 Father Heart disease [email or web address] Not available 2019 11:04:33 Father Diabetes mellitus [email or web address] Not available 2019 11:04:59 Father Hypercholest erolemia [email or web address] Not available 2019 11:05:08 Father Hypertensive disorder [email or web address] Not available 2019 11:05:42 Maternal Grandfather Heart disease [email or web address] Not available 2019 11:04:33 Paternal Grandfather Heart disease [email or web address] Not available 2019 11:04:33 Brother Heart disease [email or web address] Not available 2019 11:04:33 Brother Hypertensive disorder [email or web address] Not available 2019 11:05:42 Paternal Aunt Heart disease [email or web address] Not available 2019 11:04:33 Paternal Aunt Diabetes mellitus [email or web address] Not available 2019 11:04:59 Paternal Aunt Hypertensive disorder [email or web address] Not available 2019 11:05:42 Maternal Uncle Heart disease [email or web address] Not available 2019 11:04:33 Maternal Uncle Diabetes mellitus [email or web address] Not available 2019 11:04:59 Maternal Uncle Hypertensive disorder [email or web address] Not available 2019 11:05:42 Paternal Uncle Heart disease [email or web address] Not available 2019 11:04:33 Paternal Uncle Diabetes mellitus [email or web address] Not available 2019 11:04:59 Paternal Uncle Hypertensive disorder [email or web address] Not available 2019 11:05:42 Medical History Condition Response Anemia Y Gynecological History Statement/Question Response Current Control Method None Date of LMP 12/28/2017 Obstetrics History GPAL:G 0 P 0 0 0 0 Past Encounters Encounter ID Performer Location Encounter Start Date Encounter Closed Date Diagnosis/Indication Diagnosis SNOMED-CT Code Diagnosis ICD10 Code Diagnosis IMO Codes Diagnosis Note [id number] [facility] [address] [address] 08/29/2019 10:52:45 08/29/2019 12:23:14 Gynecologic examination 49072724 Z01.419 Take Calcium with Vitamin D 12-1500mg daily. Do monthly self breast exams. It is advised to get annual flu shot in the fall and she could obtain at [facility] or [facility] take care clinic. If you haven't received the Tdap vaccine in the last 10 years you should obtain one as well. Have mammogram yearly, bone density every 2-3 years and colonoscop y every 5-10 years depending on findings and history. Engage in daily exercise of low impact aerobic exercise 45-60 minutes 4-5 times weekly. Avoid tobacco and illicit drugs as well as using moderation with alcohol intake less than 1-2 8 oz beverages daily. This lifestyle behavior pattern will lead to less health conditions and longer life span. If BMI greater than 25 weight watchers or dietary consult advised. Questions have been answered. Patient appears to understand instructio ns, but if you have any further questions call or respond to this email Pap updated STD declined Mammo ordered CBE done Health Concerns Section Related Observation LastModified by Organization Detai ls LastModified Time None Recorded Concern Status LastModified by Organization Details LastModified Time None Recorded Advance Directives Directive None Recorded Payers Insurance Date Sequence Insurance Name Policy Number Policy Morris Covered Member ID Morris Member ID Guarantor Name 08/29/2019 1 [employer] () Jeremy Mustapha [id number] Yesi Luciano 08/29/2019 1 [employer] () Jeremy Luciano [id number] Yesi Luciano 08/29/2019 1 [employer] - [employer] () Jeremy Mustapha [id number] Yesi Luciano 08/29/2019 1 [employer] () Jeremy Mustapha [id number] Yesi Luciano Notes Date Note Type Note Provider Name and Address Organization Details Recorded Time 0 text/html Annual GYNReported by PatientGenitourinary symptomsFor menstrual cycle, patient reportsnormal menses. For urinary symptoms, patient reportsno hematuriaandno incontinence. For vulva, patient reportsno genital lesion. For vagina, patient reportsnormal vaginal discharge.Breast symptomsFor breast, patient reportsno breast pain,no breast lump, andno nipple discharge.ContraceptionFo r current contraception, patient reportssatisfied with current contraception(postmenopau se).Endocrine symptomsFor sexual complaints, patient reportsno sexual complaints,no pain during intercourse, andnormal libido. For menopausal symptoms, patient reportsno menopausal symptomsandnormal vaginal lubrication.Psychological symptomsFor psychological symptoms, patient reportsno depression,no anxiety, andno pmdd.Preventative measuresFor preventive measures, patient reportsencourage self breast examination,encourage regular exercise,encourage no tobacco use,encourage regular mammograms starting age 40, andmammogram performed within the past year. Gemma Juarez, MARY- [address], [place], [address], [place] [facility] 08/29/2019 11:43:46 OBGyn Episode Ob Episode Information Episode Created Date Number of Fetuses Patient Bloodtype Patient rh Status Prepregnancy Weight lbs Domestic Partner Domestic Partner Phone Father Name Hydraulic Press In Operator Status 08/29/19 20 1 CLOSED Fetus Data First Name Last Name Admitted to NICU Weight (g) Sex Living Outcome Pediatric Complications Fetus ID Race Codes Race Delivery Type 1696 Elieser Calculation Initial Elieser Date Initial Exam Date Initial Exam Provider Initial Ultrasound Date Last Menstrual Period Date Ultra Sound Weeks Gestation 0 Eighteen To Twenty Week Elieser Update Ultra Sound Date Fundal Height At Umbil Quickening Date Ultra Sound Latest Weeks Gestation Final Elieser Confirmed By Final Elieser Confirmed Date Final Elieser Date Ultra Sound Latest Days Gestation 0 0 Menstrual History Last Menstrual Date Menses Monthly On Bcp Conception Prior Menses Frequency Hcg Plus Date Menarche Onset Age Delivery Information Delivery Date Delivery Type Labor Anesthesia Weeks Gestation Incision Type Labor Labor Length Hrs Delivered By Post Complications Tubal Sterilization Discharge Date Comments 0 Discharge Information Feeding Method Contraceptive Method Maternal HG B and HCT Levels Ob Episode Information Episode Created Date Number of Fetuses Patient Bloodtype Patient rh Status Prepregnancy Weight lbs Domestic Partner Domestic Partner Phone Father Name Hydraulic Press In Operator Status 08/29/19 20 1 CLOSED Fetus Data First Name Last Name Admitted to NICU Weight (g) Sex Living Outcome Pediatric Complications Fetus ID Race Codes Race Delivery Type 1695 Elieser Calculation Initial Elieser Date Initial Exam Date Initial Exam Provider Initial Ultrasound Date Last Menstrual Period Date Ultra Sound Weeks Gestation 0 Eighteen To Twenty Week Elieser Update Ultra Sound Date Fundal Height At Umbil Quickening Date Ultra Sound Latest Weeks Gestation Final Elieser Confirmed By Final Elieser Confirmed Date Final Elieser Date Ultra Sound Latest Days Gestation 0 0 Menstrual History Last Menstrual Date Menses Monthly On Bcp Conception Prior Menses Frequency Hcg Plus Date Menarche Onset Age Delivery Information Delivery Date Delivery Type Labor Anesthesia Weeks Gestation Incision Type Labor Labor Length Hrs Delivered By Post Complications Tubal Sterilization Discharge Date Comments 0 Discharge Information Feeding Method Contraceptive Method Maternal HG B and HCT Levels
--- OUTSIDE RECORDS SUMMARY | 2025-02-12 08:58 | XMS_ITS | Clinical Summary ---
Author Organization [facility] Address [address] [place] [id number] Care Team Providers Care Sales Representative Wire Rope Name Role Phone Unavailable Primary Care Provider [...]
--- OUTSIDE RECORDS SUMMARY | 2025-02-12 08:58 | XMS_ITS | Clinical Summary ---
Author Organization [facility] Address [address] [place] [id number] Phone Care Team Providers Care Community Development Specialist Name Role Phone Antolin aDvis MD Primary Care Provider [phone] Allergies Active Allergy Reactions Criticality Noted Date [...] patient's age to complete this topic Insurance [facility] Care Teams Community Development Specialist Relationship Specialty Start Date End Date [place]olin [place] [address] PCP - General Internal Medicine 07/30/19
--- OUTSIDE RECORDS SUMMARY | 2025-02-12 08:58 | XMS_ITS | Clinical Summary ---
Author Organization [facility] Address [address] [place] [address] Care Team Providers Care Blindstitch Hemmer Name Role Phone Antolin Davis MD Primary Care Provider +1 -[phone] Allergies Active Allergy Reactions Criticality Noted Date [...] 03/11/2023 Assessment & Plan (03/11/2023 1:27 PM OBSTETRICS GYN): Symptoms sinus congestion, sinus pressure and cough present x 10 day and improving. Denies any fever or sob. No GI symptoms. Recommend continued [id number] symptomatic treatment, can try Sudafed as well. [...] monitor. Assessment & Plan (03/11/2023 1:25 PM OBSTETRICS GYN): Doing well with bupropion and buspirone. No [...] ordered. Encouraged patient to schedule appointment with multifocal button inspector for cervical cancer screening/well-woman exam. Assessment & [...] (12/15/2021): Added automatically from request for surgery [id number] Encounter for colorectal cancer screening 2021 Hyperlipidemia [...] today. Assessment & Plan (03/11/2023 1:25 PM OBSTETRICS GYN): Mammogram ordered today. Assessment & Plan (11/21/2021 7:46 AM CDT): Aware to call and schedule mammogram. BMI 29.0-29.9,adult 08/08/2019 Assessment & Plan (03/11/2023 1:27 PM OBSTETRICS GYN): Stable Assessment & Plan (09/08/2022 12:25 PM [...] mammogram, encounter for COLONOSCOPY 02/25/2022 11:42 AM OBSTETRICS GYN HM PAP SMEAR WITH HPV Routine 08/29/2019 [...] nal Result * COLONOSCOPY (02/25/2022 11:42 AM OBSTETRICS GYN) Anatomical Region Laterality Modality Other Narrative Procedure Note Brandee Fink MD - 02/25/2022 11:42 AM CST [facility] Patient Name: Yesi Luciano Procedure Date: 02/25/2022 11:42AM Date of : 1965 Admit Type: Outpatient Age: 56 Gender: Female Attending MD: Brandee Fink M.D. Room: [facility] ROOM 1 Note Status: Finalized Patient [...] under direct vision. The Pediatric Colonoscope PCF-H190L [id number] was introducedthrough the anus and advanced to [...] 11:42 AM Procedure Code(s): --- Professional --- 23637, Colonoscopy, flexible; diagnostic, including collection of specimen(s) by brushing or washing, when performed (separateprocedure) Diagnosis Code(s): --- Professional --- Z86.010, Personal history of colonic polyps K64.8, Other hemorrhoids CPT copyright 2020 [employer]. All rights reserved. The codes documented in this report are preliminary and upon nurse monitoring reviewmay be revised to meet current compliance requirements. Recognized by the [place] for promoting quality in endoscopy Brandee Fink MD ENDOSCOPY PROCEDURES Final Result * HM PAP SMEAR WITH HPV (08/29/2019) Historical Provider HEALTH MAINTENANCE Final Result from Last 3 Months or Most Recently Relevant to Health Maintenance Insurance [employer] [facility] [employer] [facility] CLAIMS Advance Directives For more information, please contact: [phone] * Full Code (Latest Code Status on File) Date Activated Date Inactivated Comments 02/25/2022 11:44 AM 02/25/2022 5:58 PM * Full Code Date Activated Date Inactivated Comments 02/25/2022 11:44 AM 02/25/2022 11:44 AM Care Teams Blindstitch Hemmer Relationship Specialty Start Date End Date Antolin Davis MD [address] [place] [address] PCP - General Family Medicine 08/08/19
[2025-02-12] MEDS: LACTATED RINGERS 1,000 ML 999 ML IV CONT (09:31)
== END 2025-02-12 11:55 | disposition home or self-care (01) ==
PROVIDERS: Emergency Provider Emergency Medicine; PCP Family Medicine
DX: R41.82 Altered mental status, unspecified (principal); R10.13 Epigastric pain; R10.31 Right lower quadrant pain; G25.81 Restless legs syndrome
CPT/HCPCS: 36415; 70450; 74177; 80053; 81001; 81025; 83690; 85025; 87086; 96361; 96374; 99284; J2405; J7120; Q9967

== ENCOUNTER 2025-02-13 12:41 | Observation (INO) | payer OTHER, SELFPAY ==
[2025-02-13] VITALS (8 sets, daily range): BP systolic 149–167; BP diastolic 61–96; PULSE 78–85; RESP 14–20; TEMP 36.6–36.8; O2SAT 97–100; BMI 30.8
--- NOTE | ~2025-02-13 | MR_ITS ---
EXAMINATION: MR brain/brain stem wo/w con DATE: 02/14/2025 11:30 INDICATION: Brain lesion on CT TECHNIQUE: Magnetic resonance imaging (MRI) of the brain and brainstem was performed without and with 16 mL Multihance intravenous contrast. Sequences included sagittal and axial T1-weighted SE, axial diffusion-weighted FS SE, axial 3D SWAN, axial T2-weighted FLAIR, and axial T2-weighted FSE. Postcontrast axial and coronal T1-weighted SE was obtained. Apparent diffusion coefficient (ADC) maps were created. COMPARISON: None. FINDINGS: There are no areas of restricted diffusion to suggest acute infarction. No intracranial hemorrhage. There is a 12 x 11 x 7 mm avidly enhancing extra-axial mass overlying the right frontal lobe with enhancing dural tails consistent with a meningioma. No other intracranial masses or abnormally enhancing brain lesions identified. There are 3 small foci of nonspecific increased T2-weighted signal intensity in the cerebral white matter which is within normal limits for age and likely sequela of chronic small vessel ischemic disease. There are no intraparenchymal signal abnormalities seen on the other pulse sequences. The ventricles are symmetric and normal in size. There are no abnormal extra-axial fluid collections. Flow voids are seen in the cerebral arteries on the T2- weighted sequences consistent with their expected patency. Mild mucosal thickening the ethmoid sinuses. Visualized orbits and soft tissues are unremarkable. IMPRESSION: 1. 12 x 11 x 7 mm extra-axial enhancing meningioma overlying the right frontal lobe. 2. Otherwise normal for age brain with no acute intracranial process. Reviewed, dictated and finalized at location A. DING WHEEL DRESSER
--- NOTE | ~2025-02-13 | CT_ITS ---
EXAM/PROCEDURE: CTA brain carotid HISTORY: confusion COMPARISON: Brain CT from yesterday TECHNIQUE: Standard technique for IV contrast-enhanced CT angiography of the head and neck FINDINGS: 2 vessel left-sided bovine arch with common origin of the brachiocephalic and left common carotid artery. Both common carotid, and cervical ICAs are patent throughout. Vertebral arteries are also patent with the right vertebral artery dominant. Within the intracranial circulation, hypoplastic left A1 branch of the FERNANDO. Anterior cerebral arteries, and middle cerebral arteries are patent. Basilar artery and posterior cerebral arteries are patent. origin of the left TELEPHONE CLAIMS REPRESENTATIVE. 10 mm avidly enhancing focus along the inner table of the high right frontal parafalcine calvarium seen on image 155 series 6 noted. No discrete aneurysm dural sinus thrombosis or AVM. No other abnormal enhancing lesions or foci seen. IMPRESSION: 1. 10 mm avidly enhancing lesion along the right frontal inner table is potentially vascular, although a hyper enhancing meningioma might have a similar appearance. Dural aneurysms are rare and usually associated with AV fistula which I do not see any evidence of on this exam. Correlation with pre and postcontrast enhanced brain MRI is recommended. 2. No critical stenosis or occlusion seen. 3. Several variants including bovine arch, hypoplastic A1 branches of the left FERNANDO, and origin of the left TELEPHONE CLAIMS REPRESENTATIVE. Reviewed, dictated and finalized at location A. ITAL CHIEF FINANCIAL OFFICER IMPRESSION: 1. 10 mm avidly enhancing lesion along the right frontal inner table is potenti ally vascular, although a hyper enhancing meningioma might have a similar appea umm. Dural aneurysms are rare and usually associated with AV fistula which I do not see any evidence of on this exam. Correlation with pre and postcontrast enhanced brain MRI is recommended. 2. No critical stenosis or occlusion seen. 3. Several variants including bovine arch, hypoplastic A1 branches of the left FERNANDO, and origin of the left TELEPHONE CLAIMS REPRESENTATIVE.
--- NOTE | 2025-02-13 12:49 | ECG_ITS ---
Test Date: 2025-02-13 12:47:18 Measurements Intervals [place] Rate: 83 P: 61 OK: 175 QRS: 2 QRSD: 92 T: 47 QT: 352 QTc: 415 Interpretive Statements SINUS RHYTHM POSSIBLE LEFT ATRIAL ENLARGEMENT [-0.1mV P-WAVE IN V1/V2] No previous ECG available for comparison Electronically Signed On 02-13-2025 18:00:19 STEAM BRUSH OPERATOR by Raghu Campbell M.D.
--- NOTE | 2025-02-13 14:14 | ED.DIZZY ---
HPI - Dizziness General Chief Complaint: Dizziness Stated Complaint: dizziness Time Seen by Provider: 02/13/25 14:00 History of Present Illness HPI Narrative: Pt here for abdominal pain and ISRAEL yesterday. Pt had CT abdomen and family thought she was acting strange so a CT head was ordered. Pt is not acting right again per family. Pt is forgetting what she is talking about in mid sentence and forgot to make a turn going home a few days ago. Pt denies ISRAEL. Related Data Home Medications ?Medication ?Instructions ?Recorded ?Confirmed ?Last Taken ?Type ropinirole 2 mg tablet 2 mg PO HS 11/30/19 02/13/25 02/12/25 History bupropion HCl 150 mg 24 hr tablet, 150 mg PO DAILY 02/13/25 02/13/25 02/12/25 History extended release bupropion HCl 300 mg 24 hr tablet, 300 mg PO DAILY 02/13/25 02/13/25 02/12/25 History extended release buspirone 15 mg tablet 15 mg PO DAILY 02/13/25 02/13/25 02/12/25 History Allergies Allergy/AdvReac Type Severity Reaction Status Date / Time sulfamethoxazole AdvReac Unknown Joint Pain Verified 02/13/25 17:49 trimethoprim AdvReac Unknown Joint Pain Verified 02/13/25 17:49 Review of Systems Review of Systems: All systems reviewed & are unremarkable except as noted in HPI and below PMFSH Past Medical History Medical History (Updated 02/13/25 @ 16:02 by Nabil Alvarez III, DO) Restless leg syndrome Surgical History Surgical History (Updated 11/30/19 @ 23:43 by Gabriele Cain MD) History of rectal surgery Anal fistula repair Family History Family History Mother CHF (congestive heart failure) Old age Sibling CHF (congestive heart failure) H/O thyroidectomy Breast cancer Father Bladder cancer Cerebrovascular accident Social History Social History (Updated 11/30/19 @ 23:43 by Gabriele Cain MD) Tobacco type: cigarettes Alcohol intake: current Substance use: current Substance use type: marijuana Last use: 02/11/25 Lack of Transportation: No Lack of Food: Never True Current Housing: I Have Housing Concerned About Future Housing: No Difficulty Paying Gas/Electric Bills: No Difficulty Paying for Meds: No Currently Unemployed: No Education: Trade/Vocational Certificate Difficulty w/ Childcare or Family Care: No Spiritual care concerns: No Exam Const: General: healthy appearing and no acute distress Nutritional Appearance: well nourished Orientation/consciousness: patient oriented x3 Limitations: no limitations Eyes: Pupils: Equal, round and reactive pupils present EOM: EOMs intact bilaterally Neck: Neck: normal visual inspection Resp: Effort & Inspection: normal respiratory effort Auscultation: clear to auscultation bilaterally Cardio: Rate: regular rate Rhythm: regular rhythm GI: GI Palp: Yes Soft to palpation and No Tenderness to palpation present (GI) Auscultation: normal bowel sounds Skin: General skin exam: normal color Rashes: no rashes Wounds: no wounds Neuro: General: patient oriented x3, moves all extremities, no meningeal signs and no focal motor deficits Cranial nerves: Yes Nystagmus not present Speech: normal speech Extrem: General: normal to inspection and no clubbing, cyanosis or edema Psych: Mental Status: mental status grossly normal Affect: normal affect Attitude: cooperative Course Vital Signs Vital signs: Vital Signs Temperature 98.1 F 02/13/25 12:44 Pulse Rate 85 02/13/25 12:44 Respiratory Rate 14 02/13/25 12:44 Blood Pressure 167/96 H 02/13/25 12:44 Pulse Oximetry 100 02/13/25 12:44 Oxygen Delivery Room Air 02/13/25 12:44 Temperature 97.8 F 02/13/25 17:33 Pulse Rate 78 02/13/25 17:33 Respiratory Rate 16 02/13/25 17:33 Blood Pressure 163/76 H 02/13/25 17:33 Pulse Oximetry 98 02/13/25 17:33 Oxygen Delivery Room Air 02/13/25 12:44 MDM - Dizziness MDM Narrative Medical decision making narrative: Pt has enhancing frontal lobe lesion rec MRI. Discussed with Steven Valles and agrees to admit for obs. Discussed with Dr Powell, will conslult would like EEG. Differential Diagnosis Differential diagnosis: Likely adverse reaction to drug, benign paroxysmal positional vertigo, orthostatic hypotension, vertebral basilar insufficiency, cerebrovascular accident, acute vestibular neuronitis and other (mass or tumor) Lab Data Attestation: I reviewed the patient's lab results. 02/13/25 14:34 02/13/25 14:34 Labs: Lab Results 02/13/25 02/13/25 Range/Units 14:33 14:34 WBC 7.1 (4.5-10.0) K/mm3 RBC 5.21 (4.2-5.4) M/mm3 Hgb 15.9 H (12.0-15.0) g/dL Hct 47.4 H (37.0-47.0) % MCV 91.0 (80-100) fl MCH 30.5 (26-34) pg MCHC 33.5 (32-36) g/dl RDW 12.8 (11.5-14.5) % Plt Count 333 (150-375) k/mm3 MPV 9.8 (7.4-10.4) fl Immature Gran % (Auto) 0.3 (0-0.5) % Neut % (Auto) 72.8 (45.5-73.1) % Lymph % (Auto) 18.6 (18.3-44.2) % [place] % (Auto) 7.0 (2.6-8.5) % Eos % (Auto) 0.9 (0-4.4) % Baso % (Auto) 0.4 (0.2-1.2) % Lymph # (Auto) 1.31 (0.9-3.2) K/mm3 [place] # (Auto) 0.5 (0.1-0.6) K/mm3 Eos # (Auto) 0.1 (0-0.3) K/mm3 Baso # (Auto) 0.0 (0.0-0.1) K/mm3 Abs Immat Gran (auto) 0.02 (0.00-0.031) K/mm3 Absolute Neuts (auto) 5.1 (1.3-6.7) K/mm3 Absolute Nucleated RBC 0.000 (0.0-0.012) K/mm3 Nucleated RBC % 0.0 (0.0-0.2) % PT 13.6 (11.1-14.7) Seconds INR 1.0 APTT 25.6 (22.3-36.8) Seconds Sodium 138 (137-145) mmol/L Potassium 3.6 (3.4-5.0) mmol/L Chloride 102 (98-107) mmol/L Carbon Dioxide 27 (22-30) mmol/L Anion Gap 9 (4-12) mmol/L BUN 9 (7-17) mg/dL Creatinine 1.12 H (0.7-1.0) mg/dL Estim Creat Clear Calc Not Reportable Estimated GFR 50 L (59 - ) Glucose 110 (65-110) mg/dL Lactic Acid 1.0 (0.7-2.0) mmol/L Calcium 9.7 (8.4-10.2) mg/dL Total Bilirubin 0.6 (0.2-1.3) mg/dL AST 23 (14-36) U/L ALT 18 (6-35) U/L Alkaline Phosphatase 69 (38-126) U/L Troponin I < 0.012 (0.000-0.034) ng/mL Total Protein 8.1 (6.3-8.2) g/dL Albumin 4.7 (3.5-5.1) g/dL TSH 1.970 (0.465-4.680) uIU/mL Urine Color Yellow (Yellow) Urine Appearance Clear (Clear) Urine pH 7.0 (5.0-9.0) Ur Specific [place] 1.011 (1.001-1.035) Urine Protein Negative (Negative) mg/dL Urine Glucose (UA) Negative (Negative) mg/dL Urine Ketones Negative (Negative) mg/dL Ur Blood (Man) Negative (Negative) Urine Nitrate Negative (Negative) Urine Bilirubin Negative (Negative) Urine Urobilinogen 0.2 (<2.0) mg/dL Leukocyte Esterase Rfl Trace H (Negative) VAIBHAV/UL Urine RBC 0-2 (0-2) /hpf Urine WBC 0-5 (0-3) /hpf Ur Squamous Epith Cells None seen (Few) /hpf Urine Bacteria None seen /hpf Urine Casts 0-2 Urine Opiates Screen Negative (Negative) Urine Methadone Screen Negative (Negative) Ur Barbiturates Screen Negative (Negative) Ur Phencyclidine Scrn Negative (Negative) Ur Amphetamine Screen Negative (Negative) U Benzodiazepines Scrn Negative (Negative) Urine Cocaine Screen Negative (Negative) U Cannabinoids Screen Positive A (Negative) Imaging Data Attestation: I personally reviewed and interpreted this imaging study as follows: My impression: frontal lobe enhancing lesion Radiologist's impression: pt has enhancing ledion in frontal lob recommended MRI Discharge Plan Discharge Clinical Impression: Altered mental status, Brain lesion Patient Disposition: Still a Patient Condition: Stable
--- OUTSIDE RECORDS SUMMARY | 2025-02-13 14:24 | XMS_ITS | Clinical Summary ---
Author Organization [facility] Address [address] [place] [address] Care Team Providers Care Camper Assembler Name Role Phone Antolin Davis MD Primary Care Provider +1 -[phone] Allergies Active Allergy Reactions Criticality Noted Date [...] EVERY MORNING 90 tablet 01/18/20 25 Active ondansetron (ZOFRAN) 4 mg tablet Take 1 tablet (4 mg total) by mouth every 8 (eight) hours as needed for nausea or vomiting 20 tablet 02/14/20 25 Active buPROPion XL (WELLBUTRIN XL) 300 [...] 03/11/2023 Assessment & Plan (03/11/2023 1:27 PM MILLER WOOD FLOUR): Symptoms sinus congestion, sinus pressure and cough present x 10 day and improving. Denies any fever or sob. No GI symptoms. Recommend continued [id number] symptomatic treatment, can try Sudafed as well. [...] monitor. Assessment & Plan (03/11/2023 1:25 PM MILLER WOOD FLOUR): Doing well with bupropion and buspirone. No [...] ordered. Encouraged patient to schedule appointment with sales and marketing professional for cervical cancer screening/well-woman exam. Assessment & [...] (12/15/2021): Added automatically from request for surgery [id number] Encounter for colorectal cancer screening 2021 Hyperlipidemia 11/20/2021 Assessment & Plan (06/27/2024 11:33 AM CDT): Improving; reviewed labs with him today. The 10-year ASCVD risk score (Yessica RAHMAN, et al., 2019) is: 2.5% Values used [...] today. Assessment & Plan (03/11/2023 1:25 PM MILLER WOOD FLOUR): Mammogram ordered today. Assessment & Plan (11/21/2021 7:46 AM CDT): Aware to call and schedule mammogram. BMI 29.0-29.9,adult 08/08/2019 Assessment & Plan (03/11/2023 1:27 PM MILLER WOOD FLOUR): Stable Assessment & Plan (09/08/2022 12:25 PM CDT): Discussed healthy diet and importance of regular physical activity. Assessment & Plan (11/21/2021 7:40 AM CDT): Discussed healthy diet and importance of regular physical activity. Assessment & Plan (08/08/2019 9:24 AM CDT): Will await pending labs. 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 Encounters Date Type Department Care Team Description 02/13/2025 [facility]phone [facility] [address] [address] Antolin Davis MD Symptom Based Call 02/13/2025 Telephone [facility] [address] [address] Antolin Davis MD Appointment Request from Last 3 Months Immunizations Immunization Administration Dates Next Due Influenza, [...] Smoking Tobacco: Former Cigarettes 0.3 7 2 2018 Smokeless Tobacco: Never Tobacco Cessation:Counseling Given: Not [...] 2 2 Date Outcome GA Total Labor Labor/2nd/3rd Weight Sex Type Anes PTL Bárbara A1 [...] mammogram, encounter for COLONOSCOPY 02/25/2022 11:42 AM MILLER WOOD FLOUR HM PAP SMEAR WITH HPV Routine 08/29/2019 [...] nal Result * COLONOSCOPY (02/25/2022 11:42 AM MILLER WOOD FLOUR) Anatomical Region Laterality Modality Other Narrative Procedure Note Brandee Fink MD - 02/25/2022 11:42 AM CST [facility] Patient Name: Yesi Luciano Procedure Date: 02/25/2022 11:42AM Date of : 1965 Admit Type: Outpatient Age: 56 Gender: Female Attending MD: Brandee Fink M.D. Room: [facility] ROOM 1 Note Status: Finalized Patient Profile: [...] under direct vision. The Pediatric Colonoscope PCF-H190L [id number] was introducedthrough the anus and advanced to [...] 11:42 AM Procedure Code(s): --- Professional --- 00292, Colonoscopy, flexible; diagnostic, including collection of specimen(s) by brushing or washing, when performed (separateprocedure) Diagnosis Code(s): --- Professional --- Z86.010, Personal history of colonic polyps K64.8, Other hemorrhoids CPT copyright 2020 [employer]. All rights reserved. The codes documented in this report are preliminary and upon fishing rod trimmer reviewmay be revised to meet current compliance requirements. Recognized by the [employer] [employer] for promoting quality in endoscopy Brandee Fink MD ENDOSCOPY PROCEDURES Final Result * HM PAP SMEAR WITH HPV (08/29/2019) Historical Provider HEALTH MAINTENANCE Final Result from Last 3 Months or Most Recently Relevant to [place] [address] [facility] Advance Directives For more information, please contact: [phone] * Full Code (Latest Code Status on File) Date Activated Date Inactivated Comments 02/25/2022 11:44 AM 02/25/2022 5:58 PM * Full Code Date Activated Date Inactivated Comments 02/25/2022 11:44 AM 02/25/2022 11:44 AM Care Teams Camper Assembler Relationship Specialty Start Date End Date Antolin Davis MD [address] [place] [address] PCP - General Family Medicine 08/08/19
--- OUTSIDE RECORDS SUMMARY | 2025-02-13 14:24 | XMS_ITS | Encounter Summary ---
Author Organization [facility] Address [address] [place] [address] Care Team Providers Care Textile Pin Worker Name Role Phone Antolin Davis MD Primary Care Provider [phone] [phone] Reason for Visit * Reason Onset Date Comments Symptom Based Call 02/13/2025 Encounter Details Date Type Department Care Team (Late st Contact Info) Description 02/13/2025 [facility]phone [facility] [address] [address] Antolin Davis MD [address] [place] [address] Symptom Based Call Social History Tobacco Use Types Packs/Day Years Used Date Smoking Tobacco: Former Cigarettes 0.3 7 2 - 2019 Smokeless Tobacco: Never Comments:PT VAPES Alcohol Use Standard Drinks/Week Comments [...] Orientation Straight 10/31/2019 8: 37 AM CDT documented as of this encounter Miscellaneous Notes * Telephone Encounter - Vicky Lakhani MA - 02/13/2025 11:44 AM CST Please reference patient message encounter. Zofran was sent to pharmacy. MACOVIGILANCE SCIENTIST * Telephone Encounter - Melva Gore - 02/13/2025 10:12 AM CST Symptom Based Call Chief Complaint(s): Nausea Duration: 5 days What type of symptom(s) is the patient experiencing? Non-Emergent. Is this a new or reoccurring symptom(s)? new What have you tried to help your symptom(s)? Went to [facility] got zofran but did not prescribe any on release Why was appointment not scheduled? Patient seeking care without an appointment; appointment was offered by [facility]. Additional Comments: Pt has ED follow up appt tomorrow for ABD pain. stated she is extremely nauseous and wanted to know if zofran can be sent to the pharmacy prior to her appt tomorrow. Thatis what they gave her at the hospital but they did not prescribe any to go home with. Pharmacy was verified with patients spouse, please call to advise [id number] - [place], [place] - [address] AT [facility] Does message need to be routed? Yes-Action Needed MACOVIGILANCE SCIENTIST documented in this encounter Plan of Treatment Not on file documented as of this encounter Visit Diagnoses Not on filedocumented in this encounter Care Teams Textile Pin Worker Relationship Specialty Start Date End Date Antolin Davis MD [address] [place] [address] PCP - General Family Medicine 08/08/19 documented as of this encounter
--- OUTSIDE RECORDS SUMMARY | 2025-02-13 14:24 | XMS_ITS | Clinical Summary ---
Author Organization [facility] Address [address] [place] [id number] Phone Care Team Providers Care Sourcing Specialist Name Role Phone Antolin Davis MD Primary Care Provider [phone] -[phone] Allergies Active Allergy Reactions Criticality Noted Date [...] patient's age to complete this topic Insurance [facility] Care Teams Sourcing Specialist Relationship Specialty Start Date End Date Antolin Davis [place] [address] PCP - General Internal Medicine 07/30/19
--- OUTSIDE RECORDS SUMMARY | 2025-02-13 14:24 | XMS_ITS | Clinical Summary ---
Author Organization [facility] Address [address] [place] [id number] Care Team Providers Care Pottery Striper Name Role Phone Unavailable Primary Care Provider [...]
--- OUTSIDE RECORDS SUMMARY | 2025-02-13 14:24 | XMS_ITS | Encounter Summary ---
Author Organization [facility] Healthcare Address [address] [place] [address] Care Team Providers Care Dock Supervisor Name Role Phone Antolin Davis MD Primary Care Provider [phone] [phone] Reason for Visit * Reason Onset Date Comments Appointment Request 02/13/2025 Encounter Details Date Type Department Care Team (Late Contact Info) Description 02/13/2025 [facility]phone [facility] [address] [place] [address] Antolin Davis MD [address] [place] [address] Appointment Request Social History Tobacco Use Types Packs/Day Years Used Date Smoking Tobacco: Former Cigarettes 0.3 7 2 012 - 2019 Smokeless Tobacco: Never Comments:PT VAPES [...] encounter Miscellaneous Notes * Telephone Encounter - Eda Peng - 02/13/2025 8:30 AM CST scheduled ORKING ADMINISTRATOR * Telephone Encounter - James Zhu - 02/13/2025 8:25 AM CST Appointment Request What visit type does the patient need? Visit Type: Established Patient What is the reason for the visit? ER follow up seen 02/12/25 What is the reason we were unable to schedule the appointment? Current appointment availability didnot meet patient's need. Earliest available 02/20/25 If applicable, were all members of the patient's PCP care team offered (e.g., nurse practioner(s), physician real estate administrative assistant(s)) ? Yes Additional Comments: none Does message need to be routed? Yes-Action Needed ORKING ADMINISTRATOR documented in this encounter Plan of Treatment Not on file documented as of this encounter Visit Diagnoses Not on filedocumented in this encounter Care Teams Dock Supervisor Relationship Specialty Start Date End Date Antolin Davis MD [address] [place] [address] PCP - General Family Medicine 08/08/19 documented as of this encounter
[2025-02-13 14:43] LABS: Hematocrit 47.4 % (37.0-47.0); Hemoglobin 15.9 g/dL (12.0-15.0); Immature Granulocyte Percent A 0.3 % (0-0.5); Lymphocytes Absolute Auto 1.31 K/mm3 (0.9-3.2); Mean Corpuscular HGB Conc 33.5 g/dl (32-36); Mean Corpuscular Hemoglobin 30.5 pg (26-34); Mean Corpuscular Volume 91.0 fl (80-100); Nucleated Red Blood Cells Absolute Auto 0.000 K/mm3 (0.0-0.012); Nucleated Red Blood Cells Perc 0.0 % (0.0-0.2); Platelet Count Result 333 k/mm3 (150-375); Red Blood Count 5.21 M/mm3 (4.2-5.4); White Blood Count 7.1 K/mm3 (4.5-10.0)
[2025-02-13 14:51] LABS: Add Urine Microscopic? YES; Appearance Urine Clear (Clear); Glucose Urine UA Negative (Negative); Leukocyte Esterase Ur Trace LEU/UL (Negative); Nitrate Urine Negative (Negative); Non Pathogenic Casts 0-2; Specific Grav Ur 1.011 (1.001-1.035)
[2025-02-13 14:54] LABS: Alanine Aminotransferase 18 U/L (6-35); Albumin Level 4.7 g/dL (3.5-5.1); Alkaline Phosphatase 69 U/L (38-126); Anion Gap 9 mmol/L (4-12); Aspartate Amino Transferase 23 U/L (14-36); Bilirubin,Total 0.6 mg/dL (0.2-1.3); Blood Urea Nitrogen 9 mg/dL (7-17); Calcium 9.7 mg/dL (8.4-10.2); Carbon Dioxide 27 mmol/L (22-30); Chloride 102 mmol/L (98-107); Estimated Glomerular Filt Rate 50; Glucose 110 mg/dL (65-110); Potassium 3.6 mmol/L (3.4-5.0); Sodium 138 mmol/L (137-145); Total Protein 8.1 g/dL (6.3-8.2)
[2025-02-13 14:58] LABS: INR 1.0; Prothrombin Time 13.6 Seconds (11.1-14.7)
[2025-02-13 15:00] LABS: Partial Thromboplastin Time 25.6 Seconds (22.3-36.8)
[2025-02-13 15:06] LABS: Troponin I < 0.012 ng/mL (0.000-0.034)
[2025-02-13 15:24] LABS: Thyroid Stimulating Hormone 1.970 uIU/mL (0.465-4.680)
[2025-02-13 16:29] LABS: Cannabinoid Screen Urine Positive (Negative)
--- NOTE | 2025-02-13 17:01 | PC.NURSE ---
Meal tray ordered for pt
--- NOTE | 2025-02-13 17:06 | WPCEDHO ---
ED Hand Off Checklist All vitals saved: IV Site documented: All med administrations documented: Triage Note Triage Note brought in by ems from home 02/13/25 12:44 according to pt had a hard time forming words while on the phone with aunt. Allergies sulfamethoxazole Adverse Reaction (Unknown, Verified 02/13/25 13:38) Joint Pain trimethoprim Adverse Reaction (Unknown, Verified 02/13/25 13:38) Joint Pain Notes 02/13/25 17:01 Nurse Note by Bri Veloz Meal tray ordered for pt Initialized on 02/13/25 17:01 - END OF NOTE Interventions/Assessments IV / Saline Lock, Insert Start: 02/13/25 12:32 Freq: Status: Active Protocol: Document 02/13/25 14:38 KED (Rec: 02/13/25 14:38 KED [id number]) IV Assessment Peripheral Access Left Antecubital IV Catheter Access Initiated IV Insertion Date 02/13/25 IV Insertion Time 14:38 Catheter Gauge 20 IV Insertion 1 Attempts Ultrasound Used for No Placement IV Site Assessment WNL IV Care and WNL Maintenance PA: Cardiovascular Assessment Start: 02/13/25 12:32 Freq: Status: Active Protocol: Document 02/13/25 12:49 SRW (Rec: 02/13/25 12:49 SRW [id number]) Cardiovascular Assessment Cardiovascular None Symptoms Skin Description Normal Color PA: Neurological Assessment Start: 02/13/25 12:32 Freq: Status: Active Protocol: Document 02/13/25 12:49 SRW (Rec: 02/13/25 12:49 SRW [id number]) Neurological Assessment Level of Alert Consciousness Arousable to Verbal Neurological None Symptoms Hallucination Type None Unable to Redirect Yes Behavior Ability to Maintain Normal Balance Facial Symmetry Symmetrical Tongue Position Midline Nicholas Coma Scale Eyes Open Verbal Oriented and Alert Motor Follows Commands Nicholas Coma Total 15 Score Last Vital Signs Temperature 98.1 F 02/13/25 12:44 Pulse Rate 80 02/13/25 16:56 Respiratory Rate 19 02/13/25 16:56 Pulse Oximetry 99 02/13/25 16:56 Blood Pressure 149/83 H 02/13/25 16:56 Blood Pressure Mean 105 02/13/25 16:56 Blood Pressure Position Supine 02/13/25 12:44 Oxygen Delivery Room Air 02/13/25 12:44 Weight 81.5 kg 02/13/25 12:44 Last Result - Abnormals Only Hgb 15.9 g/dL (12.0-15.0) H 02/13/25 14:34 Hct 47.4 % (37.0-47.0) H 02/13/25 14:34 Creatinine 1.12 mg/dL (0.7-1.0) H 02/13/25 14:34 Estimated GFR 50 (59-) L 02/13/25 14:34 Leukocyte Esterase Rfl Trace VAIBHAV/UL (Negative) H 02/13/25 14:34 U Cannabinoids Screen Positive (Negative) A 02/13/25 14:33 Most Recent Suicide Severity Rating Suicide Severity Rating NO RISK INDICATED 02/13/25 12:44
--- NOTE | 2025-02-13 17:07 | WPCEDHO ---
ED Hand Off Checklist All vitals saved:yes IV Site documented:yes All med administrations documented:yes Triage Note Triage Note brought in by ems from home 02/13/25 12:44 according to pt had a hard time forming words while on the phone with aunt. Allergies sulfamethoxazole Adverse Reaction (Unknown, Verified 02/13/25 13:38) Joint Pain trimethoprim Adverse Reaction (Unknown, Verified 02/13/25 13:38) Joint Pain Notes 02/13/25 17:06 ED Hand Off by Pau Saldaña ED Hand Off Checklist All vitals saved: IV Site documented: All med administrations documented: Triage Note Triage Note brought in by ems from home 02/13/25 12:44 according to pt had a hard time forming words while on the phone with aunt. Allergies sulfamethoxazole Adverse Reaction (Unknown, Verified 02/13/25 13:38) Joint Pain trimethoprim Adverse Reaction (Unknown, Verified 02/13/25 13:38) Joint Pain Notes 02/13/25 17:01 Nurse Note by Bri Veloz Meal tray ordered for pt Initialized on 02/13/25 17:01 - END OF NOTE Interventions/Assessments IV / Saline Lock, Insert Start: 02/13/25 12:32 Freq: Status: Active Protocol: Document 02/13/25 14:38 KED (Rec: 02/13/25 14:38 KED [id number]) IV Assessment Peripheral Access Left Antecubital IV Catheter Access Initiated IV Insertion Date 02/13/25 IV Insertion Time 14:38 Catheter Gauge 20 IV Insertion 1 Attempts Ultrasound Used for No Placement IV Site Assessment WNL IV Care and WNL Maintenance PA: Cardiovascular Assessment Start: 02/13/25 12:32 Freq: Status: Active Protocol: Document 02/13/25 12:49 SRW (Rec: 02/13/25 12:49 SRW [id number]) Cardiovascular Assessment Cardiovascular None Symptoms Skin Description Normal Color PA: Neurological Assessment Start: 02/13/25 12:32 Freq: Status: Active Protocol: Document 02/13/25 12:49 SRW (Rec: 02/13/25 12:49 SRW [id number]) Neurological Assessment Level of Alert Consciousness Arousable to Verbal Neurological None Symptoms Hallucination Type None Unable to Redirect Yes Behavior Ability to Maintain Normal Balance Facial Symmetry Symmetrical Tongue Position Midline Nicholas Coma Scale Eyes Open Verbal Oriented and Alert Motor Follows Commands [place] Coma Total 15 Score Last Vital Signs Temperature 98.1 F 02/13/25 12:44 Pulse Rate 80 02/13/25 16:56 Respiratory Rate 19 02/13/25 16:56 Pulse Oximetry 99 02/13/25 16:56 Blood Pressure 149/83 H 02/13/25 16:56 Blood Pressure Mean 105 02/13/25 16:56 Blood Pressure Position Supine 02/13/25 12:44 Oxygen Delivery Room Air 02/13/25 12:44 Weight 81.5 kg 02/13/25 12:44 Last Result - Abnormals Only Hgb 15.9 g/dL (12.0-15.0) H 02/13/25 14:34 Hct 47.4 % (37.0-47.0) H 02/13/25 14:34 Creatinine 1.12 mg/dL (0.7-1.0) H 02/13/25 14:34 Estimated GFR 50 (59-) L 02/13/25 14:34 Leukocyte Esterase Rfl Trace VAIBHAV/UL (Negative) H 02/13/25 14:34 U Cannabinoids Screen Positive (Negative) A 02/13/25 14:33 Most Recent Suicide Severity Rating Suicide Severity Rating NO RISK INDICATED 02/13/25 12:44 Initialized on 02/13/25 17:06 - END OF NOTE 02/13/25 17:01 Nurse Note by Bri Veloz Meal tray ordered for pt Initialized on 02/13/25 17:01 - END OF NOTE Interventions/Assessments IV / Saline Lock, Insert Start: 02/13/25 12:32 Freq: Status: Active Protocol: Document 02/13/25 14:38 KED (Rec: 02/13/25 14:38 KED [id number]) IV Assessment Peripheral Access Left Antecubital IV Catheter Access Initiated IV Insertion Date 02/13/25 IV Insertion Time 14:38 Catheter Gauge 20 IV Insertion 1 Attempts Ultrasound Used for No Placement IV Site Assessment WNL IV Care and WNL Maintenance PA: Cardiovascular Assessment Start: 02/13/25 12:32 Freq: Status: Active Protocol: Document 02/13/25 12:49 SRW (Rec: 02/13/25 12:49 SRW [id number]) Cardiovascular Assessment Cardiovascular None Symptoms Skin Description Normal Color PA: Neurological Assessment Start: 02/13/25 12:32 Freq: Status: Active Protocol: Document 02/13/25 12:49 SRW (Rec: 02/13/25 12:49 SRW [id number]) Neurological Assessment Level of Alert Consciousness Arousable to Verbal Neurological None Symptoms Hallucination Type None Unable to Redirect Yes Behavior Ability to Maintain Normal Balance Facial Symmetry Symmetrical Tongue Position Midline Nicholas Coma Scale Eyes Open Verbal Oriented and Alert Motor Follows Commands [place] Coma Total 15 Score Last Vital Signs Temperature 98.1 F 02/13/25 12:44 Pulse Rate 80 02/13/25 16:56 Respiratory Rate 19 02/13/25 16:56 Pulse Oximetry 99 02/13/25 16:56 Blood Pressure 149/83 H 02/13/25 16:56 Blood Pressure Mean 105 02/13/25 16:56 Blood Pressure Position Supine 02/13/25 12:44 Oxygen Delivery Room Air 02/13/25 12:44 Weight 81.5 kg 02/13/25 12:44 Last Result - Abnormals Only Hgb 15.9 g/dL (12.0-15.0) H 02/13/25 14:34 Hct 47.4 % (37.0-47.0) H 02/13/25 14:34 Creatinine 1.12 mg/dL (0.7-1.0) H 02/13/25 14:34 Estimated GFR 50 (59-) L 02/13/25 14:34 Leukocyte Esterase Rfl Trace VAIBHAV/UL (Negative) H 02/13/25 14:34 U Cannabinoids Screen Positive (Negative) A 02/13/25 14:33 Most Recent Suicide Severity Rating Suicide Severity Rating NO RISK INDICATED 02/13/25 12:44
--- NOTE | 2025-02-13 17:08 | PC.NURSE ---
called nurse and she said i am in patients room and i will call you back.
--- NOTE | 2025-02-13 17:30 | ADMGEN ---
This patient, Yesi Luciano, was admitted to Medical Room 256-. Patient/family oriented to hospital policies and general routines including ID bracelet, bed and alarms, visiting hours, pain management, procedures, bathroom and other care routines, personal items, smoking policy, room service/diet, and visiting hours. Information on how to activate the Rapid Response Team has been discussed. Patient/Family are encouraged to report perceived risks to care and to ask questions if they do not understand what they are told or what they should do.
--- NOTE | 2025-02-13 19:23 | P.HP_ITS ---
H&P: HPI History of Present Illness Date/Time: 02/13/25 19:23 Chief Complaint: AMS Narrative: 59-year-old female with a past medical history of RLS, depression presents to the ED on 02/13/2025 with complaints of altered mental status. Patient initially presented to the ED on 02/12 with complaints of abdominal pain. Patient reported she had not had a bowel movement in several days. Head CT was also performed during that visit as patient family states she has been mildly confused and acting strangely for the past couple days, which was negative for acute process. Patient was sent home from the ED and drank prune juice which resulted in a bowel movement and resolution in abdominal pain. Today patient again presents to the emergency department as family says she is still acting strange. She is forgetting what she is talking about in the middle of a sentence and got lost in her neighborhood while driving home. Patient denies any fever, chest pain, shortness of breath. Initial vital signs 167/96, HR 85, respirations 14, afebrile and 100% on room air Labs with creatinine 1.12, GFR 50, troponin negative, UA with no sign of infection. UDS positive for cannabinoids which patient admits to using. Head neck CTA today reveals 10 mm avidly enhancing lesion along the right frontal inner table is potentially vascular, although a hyper enhancing meningioma might have a similar appearance. Unlikely to be dural aneurysm. No critical stenosis or occlusion. Several variants including bovine arch, hypoplastic A1 branches of the left FERNANDO, and origin of the left RESOURCE CONSERVATION MANAGER. EKG shows sinus rhythm Review of Systems Review of Systems: All systems reviewed & are unremarkable except as noted in HPI and below [facility] Past Medical History Medical History (Updated 02/14/25 @ 01:24 by Taylor Crowell APRN) Depression Restless leg syndrome Surgical History Surgical History (Updated 11/30/19 @ 23:43 by Gabriele Cain MD) History of rectal surgery Anal fistula repair Family History Family History (Updated 02/13/25 @ 17:57 by Mackenzie Nguyen RN) Mother CHF (congestive heart failure) Old age Sibling CHF (congestive heart failure) H/O thyroidectomy Breast cancer Father Bladder cancer Cerebrovascular accident Social History Social History (Updated 11/30/19 @ 23:43 by Gabriele Cain MD) Smoking status: Never smoker Tobacco type: cigarettes Alcohol intake: current Substance use: current Substance use type: marijuana Last use: 02/11/25 Lack of Transportation: No Lack of Food: Never True Current Housing: I Have Housing Concerned About Future Housing: No Difficulty Paying Gas/Electric Bills: No Difficulty Paying for Meds: No Currently Unemployed: No Education: Trade/Vocational Certificate Difficulty w/ Childcare or Family Care: No Spiritual care concerns: No Meds Home Medications and Allergies Home Medications ?Medication ?Instructions ?Recorded ?Confirmed ?Type ropinirole 2 mg tablet 2 mg PO HS 11/30/19 02/13/25 History bupropion HCl 150 mg 24 hr tablet, 150 mg PO DAILY 02/2702/13/25 History extended release bupropion HCl 300 mg 24 hr tablet, 300 mg PO DAILY 02/2702/13/25 History extended release buspirone 15 mg tablet 15 mg PO DAILY 02/13/2502/03 History Allergies Allergy/AdvReac Type Severity Reaction Status Date / Time sulfamethoxazole AdvReac Unknown Joint Pain Verified 02/13/25 17:49 trimethoprim AdvReac Unknown Joint Pain Verified 02/13/25 17:49 Vital Signs Vital Signs - 24 hr 02/13/25 12:44 02/13/25 14:38 02/13/25 16:22 Temperature 98.1 F Pulse Rate 85 84 80 Respiratory Rate 14 14 20 Blood Pressure 167/96 H 150/61 H 149/83 H Pulse Oximetry 100 98 97 Oxygen Delivery Room Air 02/13/25 16:56 02/13/25 17:23 02/13/25 17:33 Temperature 97.8 F Pulse Rate 80 81 78 Respiratory Rate 19 17 16 Blood Pressure 149/83 H 153/93 H 163/76 H Pulse Oximetry 99 97 98 Oxygen Delivery 02/13/25 18:17 Temperature Pulse Rate Respiratory Rate 16 Blood Pressure Pulse Oximetry 98 Oxygen Delivery Room Air Exam Narrative: GENERAL: non-toxic appearing, in no acute distress. HEAD: Normocephalic, atraumatic. EYES: PERRLA. Conjunctivae clear. NOSE: Normal no drainage. THROAT: Pharynx clear, no exudate. NECK: Trachea midline. No adenopathy, no masses. RESPIRATORY: Airway patent, respirations nonlabored. CTA. CARDIOVASCULAR: Regular rate and rhythm BREASTS: Defer GASTROINTESTINAL: Abdomen is soft and nontender. No organomegaly. Bowel sounds normal in all quadrants. GENITOURINARY: Defer MUSCULOSKELETAL: Moves all extremities. No gross deformities. No calf tenderness. SKIN: Warm, dry, normal color. NEURO: A&O X4. Speech clear PSYCHIATRIC: Normal interaction. States she is starting to feel anxious H&P: Results Labs Labs: Short CBC 02/13/25 Range/Units 14:34 WBC 7.1 (4.5-10.0) K/mm3 Hgb 15.9 H (12.0-15.0) g/dL Hct 47.4 H (37.0-47.0) % Plt Count 333 (150-375) k/mm3 BMP 02/13/25 14:34 Sodium 138 Potassium 3.6 Chloride 102 Carbon Dioxide 27 BUN 9 Creatinine 1.12 H Glucose 110 Calcium 9.7 Cardiac Enzymes 02/13/25 Range/Units 14:34 Troponin I < 0.012 (0.000-0.034) ng/mL Liver Function 02/13/25 Range/Units 14:34 Total Bilirubin 0.6 (0.2-1.3) mg/dL AST 23 (14-36) U/L ALT 18 (6-35) U/L Alkaline Phosphatase 69 (38-126) U/L Albumin 4.7 (3.5-5.1) g/dL Urine 02/13/25 Range/Units 14:34 Urine Color Yellow (Yellow) Urine Appearance Clear (Clear) Urine pH 7.0 (5.0-9.0) Ur Specific [place] 1.011 (1.001-1.035) Urine Protein Negative (Negative) mg/dL Urine Glucose (UA) Negative (Negative) mg/dL Assessment and Plan Assessment and plan (1) Brain lesion: Code(s): G93.9 - Disorder of brain, unspecified Status: Acute Assessment and Plan: Family concerned about patient's mental status that she has been acting strangely for the past few days. She is forgetting what she is talking about in the middle of a sentence and got lost in her neighborhood while driving home. further states that patient laughed excessively hard as a joke that was not very funny. Head neck CTA today reveals 10 mm avidly enhancing lesion along the right frontal inner table is potentially vascular, although a hyper enhancing meningioma might have a similar appearance. Unlikely to be dural aneurysm. No critical stenosis or occlusion. Several variants including bovine arch, hypoplastic A1 branches of the left FERNANDO, and origin of the left RESOURCE CONSERVATION MANAGER. -neurology consult -MRI with and without contrast ordered -EEG (2) Depression: Qualifiers: Depression Type: unspecified Qualified Code(s): F32.A - Depression, unspecified Code(s): F32.A - Depression, unspecified Status: Chronic Assessment and Plan: Continue bupropion (3) Restless leg syndrome: Code(s): G25.81 - Restless legs syndrome Status: Chronic Assessment and Plan: Continue Requip 2 mg p.o. HS (4) Anxiety: Code(s): F41.9 - Anxiety disorder, unspecified Status: Acute Assessment and Plan: Patient denies history of anxiety. She is currently anxious about what is current going on with her health. -hydroxyzine 25 mg p.o. q.6 hours p.r.n. for anxiety Plan Diet: Regular GI prophylaxis: NA DVT prophylaxis: SCDs lines/drains: PIV Fluids: NA Code status: Full Quality VTE Prophylaxis VTE prophylaxis: mechanical ordered Hospitalist [facility] Advance Care Plan I have confirmed that the patient's Advanced Care Plan is present, code status is documented, or surrogate decision maker is listed in patient medical record.: Yes Medication Reconciliation I have utilized all available resources to obtain, update and review the patients current medications (includes all prescriptions, OTC, herbals, cannabis, and nutritional supplements).: Yes
--- NOTE | 2025-02-14 | ECHO_ITS ---
Patient Info Name: Yesi Luciano Age: 59 years : 1965 Gender: Female Ht: 27 in Wt: 408 lbs BSA: 2.15 m2 HR: 76 bpm BP: 165 / 91 mmHg Heart Rhythm: Sinus Rhythm Technical Quality: Good Exam Date: 02/14/2025 2:32 PM Patient Status: O Admit Date: 02/13/2025 Exam Type: CA echo doppler w bubble study Complete two-dimensional, color flow and Doppler transthoracic echocardiogram is performed with agitated saline. Staff Referring Physician: Nabil Alvarez III Apron Worker: Kellen Lockett Attending Provider: Cornelius Leslie Contrast/Agitated Saline Contrast/Ag. Saline: Agitated Saline Amount: 20.00 ml Existing IV Access: Yes IV Access Condition: patent with no signs of infiltration Summary 1. There is normal biventricular size and systolic function. 2. There are no significant valvular abnormalities. 3. There is no [id number] shunt on agitated saline study. Left Ventricle The left ventricle is normal in size and systolic function. The left ventricular ejection fraction is visually estimated to be 60-65%. Right Ventricle The right ventricle is normal in size and systolic function. Left Atria The left atrium is mildly dilated. Right Atria The right atrium is normal size. Atrial Septum There is no [id number] shunt on agitated saline study. Aortic Valve The aortic valve is trileaflet and opens well. There is no aortic regurgitation. Pulmonic Valve Pulmonic valve is normal. There is no pulmonic valve regurgitation. Mitral Valve The mitral valve is normal. There is trace mitral regurgitation. Tricuspid Valve The tricuspid valve is normal. There is trace tricuspid regurgitation. Pericardium/Pleural Pericardium is normal in appearance with no evidence for significant pericardial effusion. Inferior Vena Cava Normal inferior vena cava with >50% collapse upon inspiration consistent with normal right atrial pressure, 3 mmHg. Aorta The aortic root at the level of the sinus of Valsalva measures 2.4 cm in diameter. Left Ventricular Outflow Tract Name Value Normal LVOT 2D LVOT Diameter 2.0 cm LVOT Doppler LVOT Peak Velocity 132 cm/s LVOT Peak Gradient 7 mmHg LVOT Mean Gradient 3 mmHg LVOT VTI 25 cm LVOT VTI/AV VTI Ratio 0.8 LVOT Stroke Volume 79 ml LVOT CO 5.8 l/min LVOT CI 2.7 l/min/m2 Pulmonic Valve Name Value Normal RVOT Doppler RVOT Peak Velocity 80 cm/s RVOT Peak Gradient 3 mmHg PV Doppler PV Peak Velocity 142 cm/s PV Peak Gradient 8 mmHg Mitral Valve Name Value Normal MV Diastolic Function MV E Peak Velocity 90 cm/s MV A Peak Velocity 84 cm/s MV E/A 1.1 MV Decel Time (PW) 184 ms MV Annular TDI MV E/e' (Septal) 16.6 MV E/e' (Lateral) 7.4 MV E/e' (Average) 12.0 Tricuspid Valve Name Value Normal TV Regurgitation Doppler TR Peak Velocity 167 cm/s TR Peak Gradient 11 mmHg Estimated PAP/RSVP RA Pressure 3 mmHg <=5 PA Systolic Pressure 14 mmHg <36 RV Systolic Pressure 14 mmHg <36 TV Annular TDI TV Lateral Cristy s' Velocity 9.2 cm/s >=9.5 Aorta Name Value Normal Ascending Aorta Ao Root Diameter (MM) 2.8 cm Ao Root Diam Index (MM) 1.3 cm/m2 Aortic Valve Name Value Normal AV Doppler AV Peak Velocity 176 cm/s AV Peak Gradient 12 mmHg AV Mean Gradient 6 mmHg AV VTI 31 cm AV Area (Cont Eq VTI) 2.6 cm2 >=3.0 AV Area (Cont Eq Alex) 2.4 cm2 AV DI (Alex) 0.75 AV Regurgitation 2D LVOT Area 3.1 cm2 Ventricles Name Value Normal LV Dimensions 2D/MM IVS Diastolic Thickness (2D) 1.0 cm 0.6-1.0 LVID Diastole (2D) 4.5 cm 3.8-5.2 LVIW Diastolic Thickness (2D) 1.0 cm 0.6-0.9 LVID Systole (2D) 2.9 cm 2.2-3.5 LVOT Diameter 2.0 cm LV Mass (2D Cubed) 153.57 g 67.00-162.00 LV Mass Index (2D Cubed) 71 g/m2 43-95 Relative Wall Thickness (2D) 0.44 <=0.42 LV Fractional Shortening/Ejection Fraction 2D/MM LV Fractional Shortening (2D) 35 % 27-45 LV EF (2D Teichholz) 65 % LV Diastolic Volume (4C MOD) 67 ml LV EF (4C MOD) 64 % LV Diastolic Volume (2C MOD) 53 ml LV EF (2C MOD) 67 % LV Diastolic Volume (BP MOD) 62 ml 46-106 LV Diastolic Volume Index (BP MOD) 29 ml/m2 29-61 LV Systolic Volume (BP MOD) 21 ml 14-42 LV Systolic Volume Index (BP MOD) 10 ml/m2 8-24 LV EF (BP MOD) 66 % 54-74 LV Diastolic Length (4C) 8.1 cm LV Systolic Length (4C) 6.1 cm LV Stroke Volume (4C MOD) 43 ml Atria Name Value Normal LA Dimensions LA Dimension (MM) 4.6 cm 2.7-3.8 LA Volume (4C A-L) 67 ml LA Volume (BP A-L) 56 ml RA Dimensions RA Area (4C) 15.8 cm2 <=18.0 Report Signatures
[2025-02-14 05:17] VITALS: BP 165/91; PULSE 76; RESP 20; TEMP 36.2; O2SAT 99
[2025-02-14] MEDS: buPROPion HCL XL (24 HR) 150 MG TABCR 300 MG PO (08:11)
[2025-02-14] MEDS: buPROPion HCL XL (24 HR) 150 MG TABCR PO (08:12)
[2025-02-14 08:27] VITALS: O2SAT 98
--- NOTE | 2025-02-14 08:48 | P.PNIM_ITS ---
Progress Note: A&P Assessment and Plan (1) Brain lesion: Code(s): G93.9 - Disorder of brain, unspecified Status: Acute Assessment and Plan: Family concerned about patient's mental status that she has been acting strangely for the past few days. She is forgetting what she is talking about in the middle of a sentence and got lost in her neighborhood while driving home. further states that patient laughed excessively hard as a joke that was not very funny. Head neck CTA today reveals 10 mm avidly enhancing lesion along the right frontal inner table is potentially vascular, although a hyper enhanc ing meningioma might have a similar appearance. Unlikely to be dural aneurysm. No critical stenosis or occlusion. Several variants including bovine arch, hypoplastic A1 branches of the left FERNANDO, and origin of the left RESIDENTIAL FEE APPRAISER. -neurology consult -MRI with and without contrast ordered -EEG 02/14: Pt reports that she feels a lot better today but still feels that she is in a dream still. 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 -Per neuro, still needing EEG and echo to r/o seizure and TIA respectively. Pending both. Will continue to monitor. (2) Depression: Qualifiers: Depression Type: unspecified Qualified Code(s): F32.A - Depression, unspecified Code(s): F32.A - Depression, unspecified Status: Chronic Assessment and Plan: Continue bupropion (3) Restless leg syndrome: Code(s): G25.81 - Restless legs syndrome Status: Chronic Assessment and Plan: Continue Requip 2 mg p.o. HS (4) Anxiety: Code(s): F41.9 - Anxiety disorder, unspecified Status: Acute Assessment and Plan: Patient denies history of anxiety. She is currently anxious about what is current going on with her health. -hydroxyzine 25 mg p.o. q.6 hours p.r.n. for anxiety (5) HTN (hypertension): Code(s): I10 - Essential (primary) hypertension Status: Acute Assessment and Plan: Pt reports that her BP's are normally 150/90-100 and she has never been put on medication before. -BPs here ranging from 145-169/61-106 -Started Losartan 25mg PO daily today, will continue to monitor. Will be discharged with Plan Diet: Regular GI prophylaxis: NA DVT prophylaxis: SCDs lines/drains: PIV Fluids: NA Code status: Full Pending: EEG, echo w/bubble Time Spent With Patient Time: 45 Subjective Date/time seen: 02/14/25 1226 Interval history: Upon my arrival, pt lying comfortably in bed with , daughter, and Dr. Powell at the bedside. Pt states that she feels a lot better today but still feels like I am in a dream. Pt denies any other sx today including CP, SOB, or [place]. Updated her on the continuous plan for EEG and echo to r/o TIA & seizures recs from neuro. Review of Systems Review of Systems: All systems reviewed & are unremarkable except as noted in HPI and below Exam Narrative: GENERAL: non-toxic appearing, in no acute distress. HEAD: Normocephalic, atraumatic. EYES: PERRLA. Conjunctivae clear. NOSE: Normal no drainage. THROAT: Pharynx clear, no exudate. NECK: Trachea midline. No adenopathy, no masses. RESPIRATORY: Airway patent, respirations nonlabored. CTA. CARDIOVASCULAR: Regular rate and rhythm BREASTS: Defer GASTROINTESTINAL: Abdomen is soft and nontender. No organomegaly. Bowel sounds normal in all quadrants. GENITOURINARY: Defer MUSCULOSKELETAL: Moves all extremities. No gross deformities. No calf tenderness. SKIN: Warm, dry, normal color. NEURO: A&O X4. Speech clear. L facial droop, chronic (Solis's Palsy) PSYCHIATRIC: Normal interaction. States she is starting to feel anxious Objective Data Vital Signs Vital Signs: Vital Signs - 24 hr 02/13/25 12:44 02/13/25 14:38 02/13/25 16:22 Temperature 98.1 F Pulse Rate 85 84 80 Respiratory Rate 14 14 20 Blood Pressure 167/96 H 150/61 H 149/83 H Pulse Oximetry 100 98 97 Oxygen Delivery Room Air 02/13/25 16:56 02/13/25 17:23 02/13/25 17:33 Temperature 97.8 F Pulse Rate 80 81 78 Respiratory Rate 19 17 16 Blood Pressure 149/83 H 153/93 H 163/76 H Pulse Oximetry 99 97 98 Oxygen Delivery 02/13/25 18:17 02/13/25 20:00 02/13/25 20:05 Temperature 98.2 F Pulse Rate 79 Respiratory Rate 16 20 Blood Pressure 158/93 H Pulse Oximetry 98 98 Oxygen Delivery Room Air Room Air 02/14/25 05:17 02/14/25 08:27 Temperature 97.2 F L Pulse Rate 76 Respiratory Rate 20 Blood Pressure 165/91 H Pulse Oximetry 99 98 Oxygen Delivery Room Air Intake/Output Intake/Output: Intake & Output 02/11/25 02/12/25 02/13/25 02/14/25 23:59 23:59 23:59 23:59 Intake Total 120 100 Balance 120 100 Meds/Results Medications: Active Medications Generic Name Dose Route Start Last Admin Trade Name Freq PRN Reason Stop Dose Admin Bupropion HCl 300 mg 02/14/25 09:00 02/14/25 08:11 Bupropion Hcl Xl (24 Hr) 150 Mg Tabcr PO 300 mg DAILY JARAD Administration Bupropion HCl 150 mg 02/14/25 09:00 02/14/25 08:12 Bupropion Hcl Xl (24 Hr) 150 Mg Tabcr PO 150 mg DAILY JARAD Administration Buspirone HCl 15 mg 02/14/25 09:00 02/14/25 08:12 Buspirone Hcl 5 Mg Tablet PO 15 mg DAILY JARAD Administration Hydroxyzine HCl 25 mg 02/13/25 20:01 02/13/25 23:18 Hydroxyzine Hcl 25 Mg Tablet PO 25 mg Q6H PRN Administration Anxiety Ropinirole HCl 2 mg 02/13/25 21:00 02/13/25 23:27 Ropinirole Hcl 1 Mg Tablet PO Not Given HS [facility] Radiology Results: ITS Impressions Head/Neck CTA 02/13/25 15:26 IMPRESSION: 1. 10 mm avidly enhancing lesion along the right frontal inner table is potentially vascular, although a hyper enhancing meningioma might have a similar appearance. Dural aneurysms are rare and usually associated with AV fistula which I do not see any evidence of on this exam. Correlation with pre and postcontrast enhanced brain MRI is recommended. 2. No critical stenosis or occlusion seen. 3. Several variants including bovine arch, hypoplastic A1 branches of the left FERNANDO, and origin of the left RESIDENTIAL FEE APPRAISER. Labs Labs: Laboratory Results - last 24 hr 02/13/25 02/13/25 14:33 14:34 WBC 7.1 RBC 5.21 Hgb 15.9 H Hct 47.4 H MCV 91.0 MCH 30.5 MCHC 33.5 RDW 12.8 Plt Count 333 MPV 9.8 Immature Gran % (Auto) 0.3 Neut % (Auto) 72.8 Lymph % (Auto) 18.6 [place] % (Auto) 7.0 Eos % (Auto) 0.9 Baso % (Auto) 0.4 Lymph # (Auto) 1.31 [place] # (Auto) 0.5 Eos # (Auto) 0.1 Baso # (Auto) 0.0 Abs Immat Gran (auto) 0.02 Absolute Neuts (auto) 5.1 Absolute Nucleated RBC 0.000 Nucleated RBC % 0.0 PT 13.6 INR 1.0 APTT 25.6 Sodium 138 Potassium 3.6 Chloride 102 Carbon Dioxide 27 Anion Gap 9 BUN 9 Creatinine 1.12 H Estim Creat Clear Calc Not Reportable Estimated GFR 50 L Glucose 110 Lactic Acid 1.0 Calcium 9.7 Total Bilirubin 0.6 AST 23 ALT 18 Alkaline Phosphatase 69 Troponin I < 0.012 Total Protein 8.1 Albumin 4.7 TSH 1.970 Urine Color Yellow Urine Appearance Clear Urine pH 7.0 Ur Specific [place] 1.011 Urine Protein Negative Urine Glucose (UA) Negative Urine Ketones Negative Ur Blood (Man) Negative Urine Nitrate Negative Urine Bilirubin Negative Urine Urobilinogen 0.2 Leukocyte Esterase Rfl Trace H Urine RBC 0-2 Urine WBC 0-5 Ur Squamous Epith Cells None seen Urine Bacteria None seen Urine Casts 0-2 Urine Opiates Screen Negative Urine Methadone Screen Negative Ur Barbiturates Screen Negative Ur Phencyclidine Scrn Negative Ur Amphetamine Screen Negative U Benzodiazepines Scrn Negative Urine Cocaine Screen Negative U Cannabinoids Screen Positive A Quality VTE Prophylaxis VTE prophylaxis: mechanical ordered
--- NOTE | 2025-02-14 12:31 | WPDNEURCNPN ---
Assessment and Plan Assessment and plan (1) Anxiety: Code(s): F41.9 - Anxiety disorder, unspecified Status: Acute (2) Depression: Qualifiers: Depression Type: unspecified Qualified Code(s): F32.A - Depression, unspecified Code(s): F32.A - Depression, unspecified Status: Chronic (3) Brain lesion: Code(s): G93.9 - Disorder of brain, unspecified Status: Acute (4) Seizure: Code(s): R56.9 - Unspecified convulsions Status: Acute (5) TIA (transient ischemic attack): Code(s): G45.9 - Transient cerebral ischemic attack, unspecified Status: Acute Plan 1. Ongoing depression for which patient has been receiving the treatment as mentioned above 2. 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 EEG has been ordered to see if any focal electrical seizure is noted. In the meantime discussed with the family about further intervention which is mostly unlikely surgical. From the history sounds she has ongoing depression for which she is being treated with the medication. while she is here will obtain the Doppler study of the carotid and echocardiogram as well to rule out the possibility of Incidental TIA complicating the situation. Consult date: 02/14/25 HPI: Yesi Luciano is a 59 year old female Has been admitted to the hospital through the emergency room where she came for the complaints of abdominal pain and headache. Patient reportedly had a CT scan of abdomen and as per the family she was acting strange for that reason CT scan of the head was also ordered. Patient has been forgetting what she has been talking about in the middle of sentences and few days ago while driving she forgot to make a turn going home. Patient has been taking multiple medications including Wellbutrin 150mg Q 24hours, and Wellbutrin 300mg extended release as well that is total of 450mg per day in addition to BuSpar 15mg daily and ropinirole 2mg at night. She is reportedly allergic to sulfa. He carries a diagnosis of restless leg syndrome as well. She is currently alcohol intake or in addition to tobacco use. On initial exam in the emergency room she was found to have no focal neurological deficit. Her vital signs were normal except blood pressure of 167/96, CBC was normal, BMP was normal, and the master scan was normal As well. Drug screen was positive only for cannabinoids. CT scan of the head was done in the ER which revealed no Bleed of his space-occupying lesion, But head and neck CTA documented 10mm of [place] enhancing lesion along the right frontal inner table raising the possibility of vascular abnormalities versus dural aneurysm or enhancing meningioma. 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 Review of Systems Review of Systems: All systems reviewed & are unremarkable except as noted in HPI and below PMFSH Past Medical History Medical History Depression Restless leg syndrome Surgical History Surgical History History of rectal surgery Anal fistula repair Family History Family History Mother CHF (congestive heart failure) Old age Sibling CHF (congestive heart failure) H/O thyroidectomy Breast cancer Father Bladder cancer Cerebrovascular accident Social History Social History Smoking status: Never smoker Tobacco type: cigarettes Alcohol intake: current Substance use: current Substance use type: marijuana Last use: 02/11/25 Lack of Transportation: No Lack of Food: Never True Current Housing: I Have Housing Concerned About Future Housing: No Difficulty Paying Gas/Electric Bills: No Difficulty Paying for Meds: No Currently Unemployed: No Education: Trade/Vocational Certificate Difficulty w/ Childcare or Family Care: No Spiritual care concerns: No Meds Home Medications and Allergies Home Medications ?Medication ?Instructions ?Recorded ?Confirmed ?Type ropinirole 2 mg tablet 2 mg PO HS 11/30/19 02/13/25 History bupropion HCl 150 mg 24 hr tablet, 150 mg PO DAILY 02/13/25 02/13/25 History extended release bupropion HCl 300 mg 24 hr tablet, 300 mg PO DAILY 02/13/25 02/13/25 History extended release buspirone 15 mg tablet 15 mg PO DAILY 02/13/25 02/13/25 History Allergies Allergy/AdvReac Type Severity Reaction Status Date / Time sulfamethoxazole AdvReac Unknown Joint Pain Verified 02/13/25 17:49 trimethoprim AdvReac Unknown Joint Pain Verified 02/13/25 17:49 Vital Signs Vital Signs - 24 hr 02/13/25 12:44 02/13/25 14:38 02/13/25 16:22 Temperature 36.7 C Pulse Rate 85 84 80 Respiratory Rate 14 14 20 Blood Pressure 167/96 H 150/61 H 149/83 H Pulse Oximetry 100 98 97 Oxygen Delivery Room Air 02/13/25 16:56 02/13/25 17:23 02/13/25 17:33 Temperature 36.6 C Pulse Rate 80 81 78 Respiratory Rate 19 17 16 Blood Pressure 149/83 H 153/93 H 163/76 H Pulse Oximetry 99 97 98 Oxygen Delivery 02/13/25 18:17 02/13/25 20:00 02/13/25 20:05 Temperature 36.8 C Pulse Rate 79 Respiratory Rate 16 20 Blood Pressure 158/93 H Pulse Oximetry 98 98 Oxygen Delivery Room Air Room Air 02/14/25 05:17 02/14/25 08:00 02/14/25 08:27 Temperature 36.2 C L Pulse Rate 76 Respiratory Rate 20 Blood Pressure 165/91 H Pulse Oximetry 99 98 Oxygen Delivery Room Air Room Air Exam Narrative: Exam today revealed her to be awake alert in no obvious acute distress, she has somewhat flat affect but she was able to carry out the conversation and was also receptive to the examination, Guevara happened to be in the room. Head was normocephalic with no bruit, ear nose throat exam normal, neck supple with no bruit, heart regular with no murmur, lungs clear to auscultation with no rhonchi or crepitation, abdomen is soft non tender neurological examination revealed her to be awake alert with normal mental status somewhat flat affect his speech not dysphasic not dysarthric not dysphonic cranial examination was normal examination revealed normal strength and tone with symmetrical deep tendon reflexes and downgoing plantar responses without evidence of any sensory or cerebellar deficit. Results Labs 02/13/25 14:34 02/13/25 14:34 Labs: Short CBC 02/13/25 Range/Units 14:34 WBC 7.1 (4.5-10.0) K/mm3 Hgb 15.9 H (12.0-15.0) g/dL Hct 47.4 H (37.0-47.0) % Plt Count 333 (150-375) k/mm3 BMP 02/13/25 14:34 Sodium 138 Potassium 3.6 Chloride 102 Carbon Dioxide 27 BUN 9 Creatinine 1.12 H Glucose 110 Calcium 9.7 Cardiac Enzymes 02/13/25 Range/Units 14:34 Troponin I < 0.012 (0.000-0.034) ng/mL Liver Function 02/13/25 Range/Units 14:34 Total Bilirubin 0.6 (0.2-1.3) mg/dL AST 23 (14-36) U/L ALT 18 (6-35) U/L Alkaline Phosphatase 69 (38-126) U/L Albumin 4.7 (3.5-5.1) g/dL Urine 02/13/25 Range/Units 14:34 Urine Color Yellow (Yellow) Urine Appearance Clear (Clear) Urine pH 7.0 (5.0-9.0) Ur Specific [place] 1.011 (1.001-1.035) Urine Protein Negative (Negative) mg/dL Urine Glucose (UA) Negative (Negative) mg/dL
[2025-02-14 14:00] VITALS: BP 138/84; PULSE 76; RESP 14; TEMP 36.7; O2SAT 97
[2025-02-14] MEDS: LOSARTAN POTASSIUM 25 MG TABLET PO (14:16)
--- NOTE | 2025-02-14 15:54 | PCNEURO ---
EEG to be completed tomorrow. 02/15
[2025-02-14 20:19] VITALS: BP 137/73; PULSE 74; RESP 16; TEMP 36.8; O2SAT 98
[2025-02-14] MEDS: HYDROcodone/acetaminophen (*CRX) 5-325 MG TABLET 1 TAB PO (21:49)
[2025-02-15 04:23] LABS: Hematocrit 45.4 % (37.0-47.0); Hemoglobin 14.6 g/dL (12.0-15.0); Immature Granulocyte Percent A 0.2 % (0-0.5); Lymphocytes Absolute Auto 1.77 K/mm3 (0.9-3.2); Mean Corpuscular HGB Conc 32.2 g/dl (32-36); Mean Corpuscular Hemoglobin 30.4 pg (26-34); Mean Corpuscular Volume 94.6 fl (80-100); Nucleated Red Blood Cells Absolute Auto 0.000 K/mm3 (0.0-0.012); Nucleated Red Blood Cells Perc 0.0 % (0.0-0.2); Platelet Count Result 260 k/mm3 (150-375); Red Blood Count 4.80 M/mm3 (4.2-5.4); White Blood Count 6.2 K/mm3 (4.5-10.0)
[2025-02-15 04:36] LABS: Alanine Aminotransferase 13 U/L (6-35); Albumin Level 4.1 g/dL (3.5-5.1); Alkaline Phosphatase 56 U/L (38-126); Anion Gap 7 mmol/L (4-12); Aspartate Amino Transferase 19 U/L (14-36); Bilirubin,Total 0.5 mg/dL (0.2-1.3); Blood Urea Nitrogen 16 mg/dL (7-17); Calcium 9.4 mg/dL (8.4-10.2); Carbon Dioxide 28 mmol/L (22-30); Chloride 103 mmol/L (98-107); Estimated CRCL calculation 55 ml/min; Estimated Glomerular Filt Rate 53; Glucose 97 mg/dL (65-110); Potassium 4.2 mmol/L (3.4-5.0); Sodium 138 mmol/L (137-145); Total Protein 6.8 g/dL (6.3-8.2)
[2025-02-15 05:11] VITALS: BP 147/74; PULSE 68; RESP 14; TEMP 36.8; O2SAT 97
[2025-02-15] MEDS: buPROPion HCL XL (24 HR) 150 MG TABCR 300 MG PO (08:21)
[2025-02-15] MEDS: LOSARTAN POTASSIUM 25 MG TABLET PO (08:21)
[2025-02-15] MEDS: buPROPion HCL XL (24 HR) 150 MG TABCR PO (08:21)
--- NOTE | 2025-02-15 12:37 | P.DS_ITS ---
DS: Admitting Diagnosis Discharge Date 02/18/2025 Admitting Diagnosis AMS DS: Discharge Diagnosis Discharge Diagnosis (1) Brain lesion: Code(s): G93.9 - Disorder of brain, unspecified Status: Acute Assessment and Plan: Family concerned about patient's mental status that she has been acting strangely for the past few days. She is forgetting what she is talking about in the middle of a sentence and got lost in her neighborhood while driving home. further states that patient laughed excessively hard as a joke that was not very funny. Head neck CTA today reveals 10 mm avidly enhancing lesion along the right frontal inner table is potentially vascular, although a hyper enh ancing meningioma might have a similar appearance. Unlikely to be dural aneurysm. No critical stenosis or occlusion. Several variants including bovine arch, hypoplastic A1 branches of the left FERNANDO, and origin of the left SALES ADMINISTR[employer]. -neurology consult -MRI with and without contrast ordered -EEG 02/14: Pt reports that she feels a lot better today but still feels that she is in a dream still. 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 -Per neuro, still needing EEG and echo to r/o seizure and TIA respectively. Pending both. Will continue to monitor. 02/15: Pt continues to report sx, stills feels as if she is still somewhat in a dream state. -ECHO WDL today, pending EEG results. Per neuro today, can be discharged with neuro outpt f/u for EEG results and continued care. (2) Depression: Qualifiers: Depression Type: unspecified Qualified Code(s): F32.A - Depression, unspecified Code(s): F32.A - Depression, unspecified Status: Chronic Assessment and Plan: Continue bupropion (3) Restless leg syndrome: Code(s): G25.81 - Restless legs syndrome Status: Chronic Assessment and Plan: Continue Requip 2 mg p.o. HS (4) Anxiety: Code(s): F41.9 - Anxiety disorder, unspecified Status: Acute Assessment and Plan: Patient denies history of anxiety. She is currently anxious about what is current going on with her health. -hydroxyzine 25 mg p.o. q.6 hours p.r.n. for anxiety (5) HTN (hypertension): Code(s): I10 - Essential (primary) hypertension Status: Acute Assessment and Plan: Pt reports that her BP's are normally 150/90-100 and she has never been put on medication before. -BPs here ranging from 145-169/61-106 -Started Losartan 25mg PO daily today, will continue to monitor. Will be discharged with Plan Pt discharged home today with plan for neuro and PCP f/u and with new rx for losartan 25mg. DS: Summary Hospital Course Reason for hospitalization: AMS Hospital Course: Hospital Course: The patient is a 59-year-old female with a history of depression, restless leg syndrome, and prior rectal surgery who was admitted for evaluation of altered mental status (AMS). She initially presented to the emergency department with abdominal pain and mild confusion, which resolved after a bowel movement at home. However, her family noted persistent cognitive changes, including forgetfulness, disorganized speech, and getting lost while driving, prompting a return to the ED. On admission, she was hypertensive (BP up to 167/96), but afebrile and hemodynamically stable. Initial labs were notable for a mildly elevated creatinine (1.12) and reduced GFR (50), but otherwise unremarkable CBC, BMP, LFTs, and negative troponin. Urinalysis was negative for infection, and urine drug screen was positive for cannabinoids, which the patient admitted to using. Neuroimaging with head/neck CTA revealed a 10 mm avidly enhancing lesion along the right frontal inner table, suspicious for a vascular lesion or meningioma. MRI confirmed a [id number] mm extra-axial enhancing meningioma overlying the right frontal lobe. Neurology was consulted, and further workup was initiated to rule out seizure activity and TIA, including EEG and echocardiogram with bubble study (WDL), EEG pending at discharge. The patient remained neurologically stable throughout her hospitalization, with no focal deficits except for a chronic left facial droop due to prior Solis?s palsy. She reported subjective improvement in her mental status but continued to describe a sensation of being in a dream. Her hypertension was addressed with initiation of losartan 25 mg daily, as her BPs remained elevated during admission. Her home medications for depression (bupropion), anxiety (buspirone), and restless leg syndrome (ropinirole) were continued, and hydroxyzine was added as needed for situational anxiety. During her stay, the patient was monitored closely for neurological changes, and no acute events were observed. She remained in stable condition and was discharged with outpatient neurology follow-up, instructions to continue her new antihypertensive regimen, keep up with her hydration to replenish her kidneys, and pending results for EEG. Status at Discharge Overall status at discharge: patient is back to baseline Time Spent with Patient Time attestation: Total time spent providing and/or coordinating discharge services: 45 Exam Narrative: GENERAL: non-toxic appearing, in no acute distress. HEAD: Normocephalic, atraumatic. EYES: PERRLA. Conjunctivae clear. NOSE: Normal no drainage. THROAT: Pharynx clear, no exudate. NECK: Trachea midline. No adenopathy, no masses. RESPIRATORY: Airway patent, respirations nonlabored. CTA. CARDIOVASCULAR: Regular rate and rhythm BREASTS: Defer GASTROINTESTINAL: Abdomen is soft and nontender. No organomegaly. Bowel sounds normal in all quadrants. GENITOURINARY: Defer MUSCULOSKELETAL: Moves all extremities. No gross deformities. No calf tenderness. SKIN: Warm, dry, normal color. NEURO: A&O X4. Speech clear. L facial droop, chronic (Solis's Palsy) PSYCHIATRIC: Normal interaction. States she is starting to feel anxious DS: Data Data Completed and Pending Completed studies during hospitalization: Labs, urine, imaging Labs on day of discharge: Labs from last 24 hours 02/15/25 03:59 WBC 6.2 RBC 4.80 Hgb 14.6 Hct 45.4 MCV 94.6 MCH 30.4 MCHC 32.2 RDW 13.1 Plt Count 260 MPV 10.0 Immature Gran % (Auto) 0.2 Neut % (Auto) 58.4 Lymph % (Auto) 28.5 Reeves % (Auto) 8.2 Eos % (Auto) 4.2 Baso % (Auto) 0.5 Lymph # (Auto) 1.77 Reeves # (Auto) 0.5 Eos # (Auto) 0.3 Baso # (Auto) 0.0 Abs Immat Gran (auto) 0.01 Absolute Neuts (auto) 3.6 Absolute Nucleated RBC 0.000 Nucleated RBC % 0.0 Sodium 138 Potassium 4.2 Chloride 103 Carbon Dioxide 28 Anion Gap 7 BUN 16 Creatinine 1.06 H Estim Creat Clear Calc 55 Estimated GFR 53 L Glucose 97 Calcium 9.4 Total Bilirubin 0.5 AST 19 ALT 13 Alkaline Phosphatase 56 Total Protein 6.8 Albumin 4.1 Discharge Plan Discharge Attending physician on discharge: Cornelius Leslie Consulting providers: Jelani Powell; Stacey Maria Discharging Clinician: Stacey Maria Anticipated Discharge Date/Time: 02/15/25 15:00 Patient Disposition: Home Activity: as tolerated Diet: heart healthy Discharge Instructions: 1. I am prescribing you a high blood pressure called Losartan, 25mg. You will take this once daily in the morning after taking your blood pressure. If your blood pressure is less than 130/70, you do not need to take it that day. Follow- up with your primary care provider for further care and monitoring. 2. Follow-up outpatient with the attached neurology team in regards to your MRI and EEG results. 3. Try to stay hydrated as well. Continue to check your blood pressure and blood sugar at home if applicable. Keep your scheduled appts with your primary care provider and any specialist that you may see. Return to the emergency department if you develop sudden shortness of breath, chest pain, neurological abnormalities, a fever of greater than 101.5, or nausea, vomiting, abd pain, or diarrhea that does not go away. Follow-up with your primary care provider within 1-2 weeks, they will want to be updated on your inpatient stay in the hospital. Thank you for choosing [facility] for your healthcare needs. Patient Instructions: Losartan (By mouth), Chronic Hypertension (GEN), Altered Mental Status (GEN), Electroencephalogram (GEN) Patient Language: Samoan Stand Alone Forms: General Discharge Information Follow-up/Referrals: Bernardo Florez MD [Physician, Neurology] - 2 Weeks Discharge Medications: New losartan 25 mg Tablet 25 mg PO DAILY Qty: 90 0RF Continued ropinirole 2 mg tablet 2 mg PO HS buspirone 15 mg tablet 15 mg PO DAILY bupropion HCl 300 mg tablet extended release 24 hr 300 mg PO DAILY bupropion HCl 150 mg tablet extended release 24 hr 150 mg PO DAILY Date of admission: 02/13/25 16:20 Primary Care Provider: Susan,Antolin Anaya Admitting Provider: Cornelius Leslie Attending physician on admission: Cornelius Leslie Condition: Stable Quality VTE Prophylaxis VTE prophylaxis: mechanical ordered Hospitalist MIPS Heart Failure (Exclusion) Patient has history of Heart Transplant or Left Ventricular Assistive Device?: No IF YES, STOP HERE Heart Failure (Qualifier) Patient has current or prior documentation of LVEF less than or equal to 40%, or mod/servere depressed LVSF?: No IF NO, STOP HERE
[2025-02-15 14:00] VITALS: BP 131/71; PULSE 78; RESP 18; TEMP 36.1; O2SAT 100
--- NOTE | 2025-02-15 16:50 | P.NEURO_ITS ---
Neurology EEG Report General Information Date of Study: 02/15/25 TEST EEG DIAGNOSIS Brain lesion CONDITION OF RECORDING awake drowsy and asleep. EEG NUMBER [id number] CLINICAL HISTORY 59 years old female had an episode of jumbling and not being able to find her words and then acting ordered like she was drunk, Afterwards, patient had what seemed like a panic attacks and then body felt tense and shaky. No episode prior to this particular 1. Patient has been under a lot of stress and has not been sleeping well. Prior to this, she has been experiencing memory issues, for example she was driving home on [address] and she knew where she was but she forgot what street to turn on to get to her home, memory fog has been going on for the last 3 to 4 weeks. EEG DESCRIPTION Basic resting occipital frequency consists of low-voltage 11 to 13 hertz per 2nd alpha admixed with low-voltage 15 to 18 hertz per 2nd beta. Bilateral symmetrical sleep activity is noted with symmetrical sleep spindles. Multiple movement artifacts are also noted hyperventilation not done. Photic stimulation not done. Non paroxysmal. Nonfocal. Nonlateralizing. IMPRESSION No significant abnormalities noted, clinical correlation recommended as this particular tracing can not rule out the possibility of seizure.
== END 2025-02-15 14:35 | disposition home or self-care (01) ==
LOC: ANHED 16:02 → ANH2MED 17:15
PROVIDERS: Admitting Provider Student in an Organized Health Care Education/Training Program; Emergency Provider Emergency Medicine; PCP Family Medicine; Visit Provider Student in an Organized Health Care Education/Training Program
DX: G45.9 Transient cerebral ischemic attack, unspecified (principal); G93.9 Disorder of brain, unspecified; G51.0 Bell's palsy; I10 Essential (primary) hypertension; R56.9 Unspecified convulsions; F32.A Depression, unspecified; F41.9 Anxiety disorder, unspecified; G25.81 Restless legs syndrome; F17.210 Nicotine dependence, cigarettes, uncomplicated; Z79.891 Long term (current) use of opiate analgesic; F12.90 Cannabis use, unspecified, uncomplicated; Z80.3 Family history of malignant neoplasm of breast; Z80.52 Family history of malignant neoplasm of bladder; Z82.49 Family history of ischemic heart disease and other diseases of the circulatory system; Z82.3 Family history of stroke
CPT/HCPCS: 36415; 70496; 70498; 70553; 80053; 80307; 81001; 83605; 84443; 84484; 85025; 85610; 85730; 93005; 93306; 95816; 96375; 99285; A9270; A9577; G0378; Q9967